=== PATIENT | female | born 1970 | race Caucasian/White ===

== ENCOUNTER → 2016-12-25 | Outpatient (CLI) | payer MEDICARE, MEDICAID ==
[~2016-12-25] MED LIST: /PREG100CA PO; /PREG50CA PO; ALLE180T33 PO; ALLE24TA8 PO; ASPI81TA11 PO; AUGM875T27 PO; DEPA250T2 PO; DEPA500T2 PO; FLEX10TA2 PO; IBUP600T26 PO; LANS30CA PO; LYRI200C PO; MAXA10TA20 PO; MELO7.5T3 PO; METH2.5T PO; NORC1TAB4 PO; NORT25CA2 PO; OMEP20CA3 PO; PAME25CA PO; PANT40TA2 PO; PRED10TA2 PO; PRED20TA PO; VICO5TA PO; VOLT1GEL2 TD; albuterol MDI INH; hydrocodone OR
[2016-12-25 14:19] LABS: MEAN CORPUSCULAR HEMOGLOBIN 29.9 pg (27.0-33.0); MEAN CORPUSCULAR HGB CONC 32.9 g/dl (32.0-36.5); RED CELL DISTRIBUTION WIDTH 13.4 % (11.5-14.5); WHITE BLOOD COUNT 12.6 K/mm3 (4.0-10.0)
[2016-12-25 14:49] LABS: ALBUMIN 3.7 GM/DL (3.2-5.2); ALBUMIN/GLOBULIN RATIO 1.09 (1.00-1.93); ALKALINE PHOSPHATASE 116 U/L (45-117); ALT/SGPT 131 U/L (12-78); ANION GAP 7 MEQ/L (8-16); AST/SGOT 75 U/L (15-37); BILIRUBIN,TOTAL 0.3 MG/DL (0.2-1.0); BLOOD UREA NITROGEN 20 MG/DL (7-18); CALCIUM LEVEL 9.3 MG/DL (8.5-10.1); CARBON DIOXIDE LEVEL 28 MEQ/L (21-32); CHLORIDE LEVEL 106 MEQ/L (98-107); CHOLESTEROL LEVEL 163 MG/DL (<200); CREATININE FOR GFR 0.68 MG/DL (0.55-1.02); GLOMERULAR FILTRATION RATE > 60.0 (>58); GLUCOSE, FASTING 81 MG/DL (70-105); POTASSIUM SERUM 4.5 MEQ/L (3.5-5.1); SODIUM LEVEL 141 MEQ/L (136-145); TOTAL PROTEIN 7.1 GM/DL (6.4-8.2); TRIGLYCERIDES LEVEL 154 MG/DL (<150)
[2016-12-25 14:51] LABS: EOSINOPHILS 1 % (0-5)
== END ==
LOC: M SMT 10:23
PROVIDERS: ATTEND Family Medicine
DX: Z13.220 Encounter for screening for lipoid disorders (principal); F17.210 Nicotine dependence, cigarettes, uncomplicated; M32.9 Systemic lupus erythematosus, unspecified; Z79.899 Other long term (current) drug therapy

== ENCOUNTER → 2016-12-31 | Outpatient (CLI) | payer MEDICARE, MEDICAID ==
[2016-12-31 14:19] LABS: AMYLASE 59 U/L (25-115)
== END ==
LOC: M SMT 10:19
PROVIDERS: ATTEND Family Medicine
DX: R94.5 Abnormal results of liver function studies (principal); R10.13 Epigastric pain

== ENCOUNTER → 2017-01-24 | Outpatient (CLI) | payer MEDICARE, MEDICAID ==
[~2017-01-24] MED LIST changes: +LIDOCAINE 1% MDV 20ML VIAL As Ordered ONE
--- NOTE | 2017-01-24 16:44 | REP ---
DIAGNOSTIC MAMMOGRAM, LEFT BREAST: Patient presented for stereotactic biopsy of clustered microcalcifications in the upper outer quadrant of the left breast. These are quite posterior in location. A account collector medial lateral view is performed. The calcifications could not be seen within the field of view and are too far posterior to visualize in ML projection. Stereotactic images are performed of the calcifications using a cranial to caudal approach. After aligning the needle with the calcifications the compressed breast thickness did not allow enough needle throw to perform the biopsy. The biopsy could not be performed. IMPRESSION: Compressed breast thickness is too thin to allow for adequate throw to perform the stereotactic biopsy of the clustered microcalcifications in the upper outer quadrant of the left breast. Needle localization could be performed for excisional biopsy. Signed by Alexis Smith MD 01/24/2017 07:15 P
== END ==
LOC: M RADPRO 12:17
PROVIDERS: ATTEND Nurse Practitioner Women's Health
DX: R92.1 Mammographic calcification found on diagnostic imaging of breast (principal); F17.210 Nicotine dependence, cigarettes, uncomplicated; Z91.040 Latex allergy status; Z79.82 Long term (current) use of aspirin; Z79.899 Other long term (current) drug therapy

== ENCOUNTER → 2017-03-27 | Outpatient (CLI) | payer MEDICARE, MEDICAID ==
[~2017-03-27] MED LIST changes: +ASPI-101 PO; -ASPI81TA11 PO; +IBUP-1022 PO; -IBUP600T26 PO; -LIDOCAINE 1% MDV 20ML VIAL As Ordered ONE
[2017-03-27 19:19] LABS: BASO % 0.4 % (0.0-1.0); EOS # 0.1 K/mm3 (0.0-0.50); EOS % 0.8 % (0.0-3.0); LARGE UNSTAINED CELL # 0.1 K/mm3 (0.0-0.4); LARGE UNSTAINED CELL % 1.4 % (0.0-4.0); LYMPH # 2.2 K/mm3 (1.5-4.5); LYMPH % 26.6 % (24.0-44.0); MEAN CORPUSCULAR HGB CONC 32.8 g/dl (32.0-36.5); MEAN CORPUSCULAR VOLUME 91.3 fl (80.0-96.0); MONO # 0.5 K/mm3 (0.0-0.8); MONO % 6.9 % (0.0-5.0); NEUTROPHILS # 5.1 K/mm3 (1.8-7.7); NEUTROPHILS % 63.9 % (36.0-66.0); PLATELET COUNT, AUTOMATED 259 k/mm3 (150-450); RED CELL DISTRIBUTION WIDTH 13.4 % (11.5-14.5); WHITE BLOOD COUNT 7.9 K/mm3 (4.0-10.0)
[2017-03-27 19:54] LABS: ALBUMIN 3.6 GM/DL (3.2-5.2); ALKALINE PHOSPHATASE 120 U/L (45-117); ALT/SGPT 36 U/L (12-78); ANION GAP 9 MEQ/L (8-16); AST/SGOT 19 U/L (15-37); BILIRUBIN,TOTAL 0.3 MG/DL (0.2-1.0); BLOOD UREA NITROGEN 13 MG/DL (7-18); CARBON DIOXIDE LEVEL 25 MEQ/L (21-32); CHLORIDE LEVEL 108 MEQ/L (98-107); CHOLESTEROL LEVEL 194 MG/DL (<200); CREATININE FOR GFR 0.53 MG/DL (0.55-1.02); GLOMERULAR FILTRATION RATE > 60.0 (>58); GLUCOSE, FASTING 73 MG/DL (70-105); POTASSIUM SERUM 4.5 MEQ/L (3.5-5.1); SODIUM LEVEL 142 MEQ/L (136-145); TOTAL PROTEIN 6.6 GM/DL (6.4-8.2); TRIGLYCERIDES LEVEL 91 MG/DL (<150)
== END ==
LOC: M SMT 13:35
PROVIDERS: ATTEND Family Medicine
DX: Z13.220 Encounter for screening for lipoid disorders (principal); Z13.0 Encounter for screening for diseases of the blood and blood-forming organs and certain disorders involving the immune mechanism; Z13.29 Encounter for screening for other suspected endocrine disorder; Z79.899 Other long term (current) drug therapy

== ENCOUNTER → 2017-04-16 | Outpatient (REF) | payer MEDICARE, MEDICAID | LOC: M LAB REF 17:17 | PROVIDERS: ATTEND Nurse Practitioner Women's Health | DX: N39.0 Urinary tract infection, site not specified (principal) ==

== ENCOUNTER 2017-04-18 15:44 | Emergency (ER) | payer OTHER, MEDICARE, MEDICAID ==
[~2017-04-18] VITALS: Ht 160 cm; Wt 63.5 kg
[2017-04-18] MEDS ORDERED: NORCO, ANEXSIA 5/325MG TABLET (HYDROcodone/ACETAMINOPHEN) PO ONE (16:15)
[2017-04-18] MEDS ORDERED: CYCLOBENZAPRINE 10 MG TAB PO ONE (17:00)
[2017-04-18 17:02] VITALS: BP 134/83
--- NOTE | 2017-04-18 17:32 | REP ---
CT CERVICAL SPINE WITHOUT CONTRAST: HISTORY: Neck pain. There is no acute fracture or subluxation. Disc bulges with associated osteophyte formation are present at the C5-6 and C6-7 levels. There is minimal narrowing of the spinal canal. Uncinate process hypertrophy is present at the C5-6 and C6-7 levels. This produces minimal to mild narrowing of the neural foramina. The C5-6 and C6-7 intervertebral discs are decreased in height consistent with disc degeneration. A 10 mm hypodensity is present in the right thyroid lobe. This may represent a cyst. IMPRESSION: 1. There is no acute fracture or subluxation. 2. There is cervical spondylosis at the C5-6 and C6-7 levels. 3. 10 mm right thyroid lobe hypodensity. This may represent a cyst. Ultrasound may be helpful for further evaluation. Signed by German Lopez MD 04/19/2017 08:21 A
== END 2017-04-18 17:05 | disposition home or self-care (01) ==
LOC: EDBD 15:44 → M ED 15:44
DX: S16.1XXA Strain of muscle, fascia and tendon at neck level, initial encounter (principal); V43.62XA Car passenger injured in collision with other type car in traffic accident, initial encounter; Y92.410 Unspecified street and highway as the place of occurrence of the external cause; Y93.9 Activity, unspecified; Y99.9 Unspecified external cause status; E04.1 Nontoxic single thyroid nodule; M47.892 Other spondylosis, cervical region; F17.200 Nicotine dependence, unspecified, uncomplicated; Z79.82 Long term (current) use of aspirin; Z79.899 Other long term (current) drug therapy; Z91.040 Latex allergy status

== ENCOUNTER 2017-08-29 21:20 | Inpatient (IN) | payer MEDICARE, MEDICAID, OTHER ==
[2017-08-29] MEDS: NS 1,000 ML IV (23:01)
[2017-08-29 23:04] LABS: BASO # 0.1 10^3/uL (0.0-0.2); BASO % 0.3 % (0.0-1.0); EOS # 0.1 10^3/uL (0.0-0.50); EOS % 0.3 % (0.0-3.0); HEMATOCRIT 44.7 % (36.0-47.0); HEMOGLOBIN 15.1 g/dl (12.0-16.0); IMMATURE GRANULOCYTE # 0.1 10^3/uL (0-0); IMMATURE GRANULOCYTE % 0.5 % (0-0); LYMPH # 2.7 10^3/uL (1.5-4.5); LYMPH % 14.2 % (24.0-44.0); MEAN CORPUSCULAR HEMOGLOBIN 29.4 pg (27.0-33.0); MEAN CORPUSCULAR HGB CONC 33.8 g/dl (32.0-36.5); MONO % 5.5 % (0.0-5.0); NEUTROPHILS % 79.2 % (36.0-66.0); PLATELET COUNT, AUTOMATED 278 10^3/uL (150-450); RED BLOOD COUNT 5.14 10^6/uL (4.00-5.40); RED CELL DISTRIBUTION WIDTH 13.3 % (11.5-14.5); WHITE BLOOD COUNT 18.9 10^3/uL (4.0-10.0)
[2017-08-29 23:18] LABS: CONTROL LINE HCG INT CTR LINE PRESENT; HCG, SERUM QUALITATIVE NEGATIVE (NEGATIVE)
[2017-08-29 23:24] LABS: AMMONIA 13 uMOL/L (<32)
[2017-08-29 23:27] LABS: ALBUMIN 3.9 GM/DL (3.2-5.2); ALBUMIN/GLOBULIN RATIO 1.03 (1.00-1.93); ALKALINE PHOSPHATASE 125 U/L (45-117); ALT/SGPT 34 U/L (12-78); ANION GAP 5 MEQ/L (8-16); AST/SGOT 20 U/L (7-37); BILIRUBIN,DIRECT < 0.1 MG/DL (0.0-0.2); BILIRUBIN,TOTAL 0.2 MG/DL (0.2-1.0); BLOOD UREA NITROGEN 13 MG/DL (7-18); C REACTIVE PROTEIN QUANTITATIV < 0.30 MG/DL (0.00-0.30); CALCIUM LEVEL 9.1 MG/DL (8.5-10.1); CARBON DIOXIDE LEVEL 29 MEQ/L (21-32); CHLORIDE LEVEL 108 MEQ/L (98-107); CPK CREATINE PHOSPHOKINASE 57 U/L (26-192); CREATININE FOR GFR 0.51 MG/DL (0.55-1.02); ETHYL ALCOHOL (ETHANOL) < 0.003 % (0.000-0.010); GLOMERULAR FILTRATION RATE > 60.0 (>58); GLUCOSE, FASTING 84 MG/DL (70-105); POTASSIUM SERUM 3.7 MEQ/L (3.5-5.1); SALICYLATE LEVEL 3.9 MG/DL (5.0-30.0); SODIUM LEVEL 142 MEQ/L (136-145); TOTAL PROTEIN 7.7 GM/DL (6.4-8.2); TROPONIN I < 0.02 NG/ML (< 0.10)
[2017-08-29 23:30] LABS: ERYTHROCYTE SEDIMENTATION RATE 13 mm/hr (0-20)
[2017-08-29 23:33] LABS: MB/CK RELATIVE INDEX 1.75 (< OR =4); THYROID STIMULATING HORMONE 0.726 uIU/ML (0.358-3.740)
[2017-08-29 23:34] LABS: ACETAMINOPHEN LEVEL < 2.0 UG/ML (10.0-30.0)
[2017-08-30 00:09] LABS: INR 0.97
[2017-08-30 01:15] LABS: CHOLESTEROL LEVEL 188 MG/DL (<200)
[2017-08-30] MEDS ORDERED: POLYVINYL ALCOHOL OPHTH SOLN 15 ML(LIQUITEARS) OU (01:15)
[2017-08-30] MEDS ORDERED: BACLOFEN 10 MG TAB PO (01:15)
[2017-08-30 01:27] LABS: ESTIMATED AVERAGE GLUCOSE 88 MG/DL (60-110); HEMOGLOBIN A1c 4.7 %
[2017-08-30 01:30] LABS: TRIGLYCERIDES LEVEL 105 MG/DL (<150)
[2017-08-30 01:56] LABS: CHOLESTEROL RISK RATIO 3.615 (<5); HDL CHOLESTEROL 52 MG/DL (>40); NON-HDL-C 136 MG/DL
[2017-08-30] MEDS: NORTRIPTYLINE 25 MG CAP PO ×2 (02:51→20:00)
[2017-08-30] MEDS: DICYCLOMINE 10 MG CAP PO ×3 (02:51→20:00)
[2017-08-30] MEDS: PREGABALIN 100 MG CAP (LYRICA) PO ×3 (02:51→20:00)
[2017-08-30] MEDS: NS 1,000 ML IV (02:56)
[2017-08-30] MEDS ORDERED: INFLUENZA QUADRIVALENT PF VACCINE 0.5ML SYRINGE (90686) IM ×3 (06:45→09:30)
[2017-08-30] MEDS: FOLIC ACID 1 MG TAB PO (08:47)
[2017-08-30] MEDS: ASPIRIN 81 MG ENTERIC TAB PO (08:47)
[2017-08-30] MEDS: MULTIVITAMINS/MINERALS THERAP 1 TAB PO (08:47)
[2017-08-30] MEDS: ENOXAPARIN 40 MG/0.4 ML SYRINGE (J1650) SC (08:48)
[2017-08-30] MEDS: ANEXSIA, NORCO 7.5MG/325MG TABLET(HYDROCODONE/APAP) PO (19:36)
[2017-08-31 05:34] LABS: HEMATOCRIT 36.8 % (36.0-47.0); MEAN CORPUSCULAR HEMOGLOBIN 29.2 pg (27.0-33.0); MEAN CORPUSCULAR HGB CONC 33.7 g/dl (32.0-36.5); MEAN CORPUSCULAR VOLUME 86.6 fl (80.0-96.0); PLATELET COUNT, AUTOMATED 253 10^3/uL (150-450); RED BLOOD COUNT 4.25 10^6/uL (4.00-5.40); RED CELL DISTRIBUTION WIDTH 13.5 % (11.5-14.5)
[2017-08-31 05:41] LABS: HEMOGLOBIN 12.4 g/dl (12.0-16.0)
[2017-08-31 05:53] LABS: ANION GAP 8 MEQ/L (8-16); BLOOD UREA NITROGEN 15 MG/DL (7-18); CALCIUM LEVEL 8.3 MG/DL (8.5-10.1); CARBON DIOXIDE LEVEL 24 MEQ/L (21-32); CHLORIDE LEVEL 110 MEQ/L (98-107); CREATININE FOR GFR 0.53 MG/DL (0.55-1.02); GLOMERULAR FILTRATION RATE > 60.0 (>58); GLUCOSE, FASTING 105 MG/DL (70-105); POTASSIUM SERUM 3.4 MEQ/L (3.5-5.1); SODIUM LEVEL 142 MEQ/L (136-145)
[2017-08-31] MEDS: ANEXSIA, NORCO 7.5MG/325MG TABLET(HYDROCODONE/APAP) PO (05:56)
[2017-08-31 07:31] LABS: MAGNESIUM LEVEL 1.8 MG/DL (1.8-2.4)
[2017-08-31] MEDS: DICYCLOMINE 10 MG CAP PO ×2 (08:09→20:00)
[2017-08-31] MEDS: ENOXAPARIN 40 MG/0.4 ML SYRINGE (J1650) SC (08:09)
[2017-08-31] MEDS: MULTIVITAMINS/MINERALS THERAP 1 TAB PO (08:10)
[2017-08-31] MEDS: FOLIC ACID 1 MG TAB PO (08:10)
[2017-08-31] MEDS: PREGABALIN 100 MG CAP (LYRICA) PO ×2 (08:10→20:00)
[2017-08-31] MEDS: ASPIRIN 81 MG ENTERIC TAB PO (08:11)
[2017-08-31] MEDS: POTASSIUM CHLORIDE 10 MEQ SR TABLET PO (08:52)
[2017-08-31] MEDS: ACETAMINOPHEN TAB 650MG DOSE (2X325MG) PO ×2 (12:38→23:21)
[2017-08-31] MEDS: NICOTINE 14 MG/24 HR TRANSDERMAL TD (14:07)
[2017-08-31] MEDS: NORTRIPTYLINE 25 MG CAP PO (20:00)
[2017-08-31] MEDS: IBUPROFEN 400 MG TAB PO (20:01)
[2017-09-01 05:49] LABS: HEMATOCRIT 37.6 % (36.0-47.0); HEMOGLOBIN 12.6 g/dl (12.0-16.0); MEAN CORPUSCULAR HEMOGLOBIN 29.1 pg (27.0-33.0); MEAN CORPUSCULAR HGB CONC 33.5 g/dl (32.0-36.5); MEAN CORPUSCULAR VOLUME 86.8 fl (80.0-96.0); PLATELET COUNT, AUTOMATED 254 10^3/uL (150-450); RED BLOOD COUNT 4.33 10^6/uL (4.00-5.40); RED CELL DISTRIBUTION WIDTH 13.3 % (11.5-14.5); WHITE BLOOD COUNT 7.3 10^3/uL (4.0-10.0)
[2017-09-01 06:04] LABS: ANION GAP 8 MEQ/L (8-16); BLOOD UREA NITROGEN 11 MG/DL (7-18); CARBON DIOXIDE LEVEL 22 MEQ/L (21-32); CHLORIDE LEVEL 112 MEQ/L (98-107); CREATININE FOR GFR 0.49 MG/DL (0.55-1.02); GLOMERULAR FILTRATION RATE > 60.0 (>58); GLUCOSE, FASTING 89 MG/DL (70-105); POTASSIUM SERUM 4.1 MEQ/L (3.5-5.1); SODIUM LEVEL 142 MEQ/L (136-145)
[2017-09-01] MEDS: ASPIRIN 81 MG ENTERIC TAB PO (09:11)
[2017-09-01] MEDS: PREGABALIN 100 MG CAP (LYRICA) PO (09:11)
[2017-09-01] MEDS: FOLIC ACID 1 MG TAB PO (09:11)
[2017-09-01] MEDS: MULTIVITAMINS/MINERALS THERAP 1 TAB PO (09:12)
[2017-09-01] MEDS: DICYCLOMINE 10 MG CAP PO (09:12)
[2017-09-01] MEDS: NICOTINE 14 MG/24 HR TRANSDERMAL TD (09:13)
[2017-09-01] MEDS: ENOXAPARIN 40 MG/0.4 ML SYRINGE (J1650) SC (09:13)
[2017-09-03 09:32] LABS: DRVV SCREEN 45.9 SEC
[2017-09-03 09:36] LABS: PTT LUPUS TYPE ANTICOAG SCREEN 1.1 (0-1.2)
[2017-09-03 14:12] LABS: ANCA-ATYPICAL <1:20 titer (Neg:<1:20); ANTI DOUBLE STRAND-DNA AB <1 IU/mL (0-9); ANTI THROMBIN 3 ANTIGEN IMMUNO 79 % (72-124); ANTI THROMBIN 3 FUNCT ACTIVITY 90 % (75-135); ANTINUCLEAR ANTIBODIES DIRECT Positive (Negative); CARDIOLIPIN IGA ANTIBODY <9 APL U/mL (0-11); CARDIOLIPIN IGG ANTIBODY <9 GPL U/mL (0-14); CARDIOLIPIN IGM ANTIBODY 10 MPL U/mL (0-12); CYTOPLASMIC NEUTROP AB ANCA-C <1:20 titer (Neg:<1:20); HOMOCYST(E)INE SERUM 6.2 umol/L (0.0-15.0); PERINUCLEAR AB ANCA-P <1:20 titer (Neg:<1:20); PROTEIN C ANTIGEN 87 % (60-150); PROTEIN S ANTIGEN FREE 57 % (57-157); PROTEIN S ANTIGEN TOTAL 77 % (60-150); RNP ANTIBODIES <0.2 AI (0.0-0.9); SJOGREN'S ANTI SS-B <0.2 AI (0.0-0.9); SMITH ANTIBODIES <0.2 AI (0.0-0.9)
== END 2017-09-01 15:54 | disposition home or self-care (01) | DRG 69 ==
LOC: M ED INP 21:21 → M PCU 08-30 18:37 → M ED 21:20
DX: G45.9 Transient cerebral ischemic attack, unspecified (principal); R26.9 Unspecified abnormalities of gait and mobility; M35.00 Sjogren syndrome, unspecified; I73.00 Raynaud's syndrome without gangrene; F17.200 Nicotine dependence, unspecified, uncomplicated; Z79.899 Other long term (current) drug therapy; Z91.040 Latex allergy status; Z79.82 Long term (current) use of aspirin; M19.90 Unspecified osteoarthritis, unspecified site; M79.7 Fibromyalgia; G43.909 Migraine, unspecified, not intractable, without status migrainosus; I44.0 Atrioventricular block, first degree

== ENCOUNTER → 2017-09-06 | Outpatient (CLI) | payer OTHER, MEDICAID, MEDICARE | LOC: M PAIN 14:00 | DX: G89.29 Other chronic pain (principal); M47.812 Spondylosis without myelopathy or radiculopathy, cervical region; M50.121 Cervical disc disorder at C4-C5 level with radiculopathy; M79.1 Myalgia; M32.9 Systemic lupus erythematosus, unspecified; G47.30 Sleep apnea, unspecified; M19.90 Unspecified osteoarthritis, unspecified site; F17.210 Nicotine dependence, cigarettes, uncomplicated; Z88.5 Allergy status to narcotic agent; Z88.8 Allergy status to other drugs, medicaments and biological substances; Z91.040 Latex allergy status; Z79.891 Long term (current) use of opiate analgesic; Z79.82 Long term (current) use of aspirin; Z79.899 Other long term (current) drug therapy | CPT/HCPCS: G0463 ==

== ENCOUNTER → 2017-09-09 | Outpatient (CLI) | payer OTHER, MEDICAID, MEDICARE ==
[~2017-09-09] MED LIST changes: -/PREG100CA PO; -/PREG50CA PO; -ALLE180T33 PO; -ALLE24TA8 PO; -ASPI-101 PO; -AUGM875T27 PO; +BUPIVACAINE HCL 0.25% 10 ML VIAL As Ordered; +BUPIVACAINE HCL 0.25% 30 ML VIAL As Ordered; -DEPA250T2 PO; -DEPA500T2 PO; -FLEX10TA2 PO; -IBUP-1022 PO; -LANS30CA PO; -LYRI200C PO; -MAXA10TA20 PO; -MELO7.5T3 PO; -METH2.5T PO; -NORC1TAB4 PO; -NORT25CA2 PO; -OMEP20CA3 PO; -PAME25CA PO; -PANT40TA2 PO; -PRED10TA2 PO; -PRED20TA PO; +TRIAMCINOLONE ACETONIDE SUSP 40 MG/ML VIAL (J3301) As Ordered; -VICO5TA PO; -VOLT1GEL2 TD; -albuterol MDI INH; +diazePAM 5 MG TAB As Ordered; -hydrocodone OR
== END ==
LOC: M PAIN 10:15
DX: G89.29 Other chronic pain (principal); M54.2 Cervicalgia; M79.1 Myalgia; M32.9 Systemic lupus erythematosus, unspecified; I73.00 Raynaud's syndrome without gangrene; G47.00 Insomnia, unspecified; M19.90 Unspecified osteoarthritis, unspecified site; K86.1 Other chronic pancreatitis; Z88.5 Allergy status to narcotic agent; Z88.8 Allergy status to other drugs, medicaments and biological substances; Z91.040 Latex allergy status; Z79.891 Long term (current) use of opiate analgesic; Z79.82 Long term (current) use of aspirin; Z79.899 Other long term (current) drug therapy
CPT/HCPCS: J3301

== ENCOUNTER → 2017-10-08 | Outpatient (CLI) | payer MEDICARE, MEDICAID | LOC: M RAD 12:59 | DX: E04.1 Nontoxic single thyroid nodule (principal) | CPT/HCPCS: 78012 ==

== ENCOUNTER → 2017-10-15 | Outpatient (CLI) | payer OTHER, MEDICAID, MEDICARE | LOC: M PAIN 13:00 | DX: M79.1 Myalgia (principal); M54.2 Cervicalgia; F17.210 Nicotine dependence, cigarettes, uncomplicated; Z79.82 Long term (current) use of aspirin; Z79.891 Long term (current) use of opiate analgesic; Z79.899 Other long term (current) drug therapy; Z88.8 Allergy status to other drugs, medicaments and biological substances; Z91.040 Latex allergy status | CPT/HCPCS: G0463 ==

== ENCOUNTER → 2017-11-13 | Outpatient (CLI) | payer OTHER, MEDICAID, MEDICARE ==
[~2017-11-13] MED LIST changes: -diazePAM 5 MG TAB As Ordered
== END ==
LOC: M PAIN 14:15
DX: G89.29 Other chronic pain (principal); M79.1 Myalgia; F17.210 Nicotine dependence, cigarettes, uncomplicated; Z79.82 Long term (current) use of aspirin; Z79.891 Long term (current) use of opiate analgesic; Z79.899 Other long term (current) drug therapy; Z88.8 Allergy status to other drugs, medicaments and biological substances
CPT/HCPCS: J3301

== ENCOUNTER → 2017-12-18 | Outpatient (CLI) | payer OTHER, MEDICAID, MEDICARE ==
[~2017-12-18] MED LIST changes: -BUPIVACAINE HCL 0.25% 10 ML VIAL As Ordered; -BUPIVACAINE HCL 0.25% 30 ML VIAL As Ordered; +ISOVUE-M 300 61% 15ML VIAL (Q9967) As Ordered; +LIDOCAINE 1% SDV INJ 30 ML VIAL As Ordered; -TRIAMCINOLONE ACETONIDE SUSP 40 MG/ML VIAL (J3301) As Ordered; +methylPREDNISolone SUSP 40 MG/ML (DEPO-medrol) VIAL (J1030) As Ordered
== END ==
LOC: M PAIN 11:15
DX: G89.29 Other chronic pain (principal); M50.13 Cervical disc disorder with radiculopathy, cervicothoracic region; K86.1 Other chronic pancreatitis; M32.9 Systemic lupus erythematosus, unspecified; M79.7 Fibromyalgia; I73.00 Raynaud's syndrome without gangrene; M35.00 Sjogren syndrome, unspecified; Z79.891 Long term (current) use of opiate analgesic; M19.90 Unspecified osteoarthritis, unspecified site; F17.210 Nicotine dependence, cigarettes, uncomplicated; G47.00 Insomnia, unspecified; Z79.82 Long term (current) use of aspirin; Z79.899 Other long term (current) drug therapy; Z88.5 Allergy status to narcotic agent; Z88.8 Allergy status to other drugs, medicaments and biological substances; Z91.040 Latex allergy status
CPT/HCPCS: J1030

== ENCOUNTER → 2018-01-10 | Outpatient (CLI) | payer OTHER, MEDICAID, MEDICARE | LOC: M PAIN 14:15 | DX: M54.12 Radiculopathy, cervical region (principal); M79.1 Myalgia; M50.20 Other cervical disc displacement, unspecified cervical region; M32.9 Systemic lupus erythematosus, unspecified; I73.00 Raynaud's syndrome without gangrene; G47.00 Insomnia, unspecified; M19.90 Unspecified osteoarthritis, unspecified site; F17.210 Nicotine dependence, cigarettes, uncomplicated; K86.1 Other chronic pancreatitis; Z79.82 Long term (current) use of aspirin; Z79.899 Other long term (current) drug therapy; Z88.5 Allergy status to narcotic agent; Z88.8 Allergy status to other drugs, medicaments and biological substances; Z91.040 Latex allergy status | CPT/HCPCS: G0463 ==

== ENCOUNTER → 2018-03-12 | Outpatient (CLI) | payer MEDICARE, MEDICAID ==
[2018-03-12 13:03] LABS: BASO % 0.2 % (0.0-1.0); EOS # 0.1 10^3/uL (0.0-0.50); EOS % 0.7 % (0.0-3.0); HEMATOCRIT 42.2 % (36.0-47.0); HEMOGLOBIN 14.1 g/dl (12.0-15.5); IMMATURE GRANULOCYTE % 0.4 % (0-3.0); LYMPH # 2.6 10^3/uL (1.5-4.5); MEAN CORPUSCULAR HEMOGLOBIN 29.3 pg (27.0-33.0); MEAN CORPUSCULAR HGB CONC 33.4 g/dl (32.0-36.5); MEAN CORPUSCULAR VOLUME 87.6 fl (80.0-96.0); MONO # 0.9 10^3/uL (0.0-0.8); MONO % 6.8 % (0.0-5.0); NEUTROPHILS # 8.9 10^3/uL (1.8-7.7); NEUTROPHILS % 70.9 % (36.0-66.0); PLATELET COUNT, AUTOMATED 303 10^3/uL (150-450); RED BLOOD COUNT 4.82 10^6/uL (4.00-5.40); RED CELL DISTRIBUTION WIDTH 14.1 % (11.5-14.5); WHITE BLOOD COUNT 12.6 10^3/uL (4.0-10.0)
[2018-03-12 13:42] LABS: ERYTHROCYTE SEDIMENTATION RATE 24 mm/hr (0-20)
[2018-03-12 13:45] LABS: ALBUMIN 3.6 GM/DL (3.2-5.2); ALBUMIN/GLOBULIN RATIO 1.06 (1.00-1.93); ALKALINE PHOSPHATASE 131 U/L (45-117); ALT/SGPT 35 U/L (12-78); ANION GAP 6 MEQ/L (8-16); AST/SGOT 17 U/L (7-37); BILIRUBIN,TOTAL 0.3 MG/DL (0.2-1.0); BLOOD UREA NITROGEN 15 MG/DL (7-18); C REACTIVE PROTEIN QUANTITATIV < 0.30 MG/DL (0.00-0.30); CALCIUM LEVEL 8.6 MG/DL (8.5-10.1); CARBON DIOXIDE LEVEL 26 MEQ/L (21-32); CHLORIDE LEVEL 111 MEQ/L (98-107); CREATININE FOR GFR 0.55 MG/DL (0.55-1.30); FREE T4 1.12 NG/DL (0.76-1.46); GLOMERULAR FILTRATION RATE > 60.0 (>58); GLUCOSE, FASTING 82 MG/DL (70-100); MAGNESIUM LEVEL 2.1 MG/DL (1.8-2.4); POTASSIUM SERUM 3.9 MEQ/L (3.5-5.1); SODIUM LEVEL 143 MEQ/L (136-145); THYROID STIMULATING HORMONE 0.622 uIU/ML (0.358-3.740)
[2018-03-14 00:37] LABS: Lyme Disease IgG/IgM Antibodie <0.91 ISR (0.00-0.90); Lyme Disease IgM Ab Quantitati <0.80 index (0.00-0.79)
== END ==
LOC: M SMT 11:56
DX: R60.0 Localized edema (principal); R23.3 Spontaneous ecchymoses
CPT/HCPCS: 83735

== ENCOUNTER 2018-03-27 18:04 | Emergency (ER) | payer MEDICARE, MEDICAID ==
[2018-03-27] MEDS: NS 1,000 ML IV (18:32)
[2018-03-27] MEDS: MORPHINE 4 MG/ML 1ML VIAL/SYRINGE (J2270) IV (18:32)
[2018-03-27] MEDS: ONDANSETRON 4MG/2ML VIAL (J2405) IV (18:33)
[2018-03-27 19:01] LABS: BASO % 0.3 % (0.0-1.0); EOS # 0.2 10^3/uL (0.0-0.50); EOS % 1.7 % (0.0-3.0); HEMATOCRIT 43.5 % (36.0-47.0); HEMOGLOBIN 14.8 g/dl (12.0-15.5); IMMATURE GRANULOCYTE % 0.3 % (0-3.0); LYMPH # 3.6 10^3/uL (1.5-4.5); LYMPH % 30.8 % (24.0-44.0); MEAN CORPUSCULAR HEMOGLOBIN 29.2 pg (27.0-33.0); MONO # 0.7 10^3/uL (0.0-0.8); MONO % 6.1 % (0.0-5.0); NEUTROPHILS # 7.1 10^3/uL (1.8-7.7); NEUTROPHILS % 60.8 % (36.0-66.0); PLATELET COUNT, AUTOMATED 288 10^3/uL (150-450); RED BLOOD COUNT 5.06 10^6/uL (4.00-5.40); RED CELL DISTRIBUTION WIDTH 14.4 % (11.5-14.5); WHITE BLOOD COUNT 11.8 10^3/uL (4.0-10.0)
[2018-03-27] MEDS: HYDROMORPHONE HCL 0.5 MG/ 0.5 ML SYRINGE (J1170 PER 1) IV (19:04)
[2018-03-27 19:13] LABS: LACTIC ACID SEPSIS PROTOCOL 0.9 MMOL/L (0.4-2.0)
[2018-03-27 19:18] LABS: ALBUMIN 3.8 GM/DL (3.2-5.2); ALKALINE PHOSPHATASE 147 U/L (45-117); ALT/SGPT 41 U/L (12-78); AMYLASE 53 U/L (25-115); ANION GAP 9 MEQ/L (8-16); AST/SGOT 48 U/L (7-37); BILIRUBIN,DIRECT < 0.1 MG/DL (0.0-0.2); BILIRUBIN,TOTAL 0.3 MG/DL (0.2-1.0); BLOOD UREA NITROGEN 11 MG/DL (7-18); CALCIUM LEVEL 9.1 MG/DL (8.5-10.1); CARBON DIOXIDE LEVEL 26 MEQ/L (21-32); CHLORIDE LEVEL 110 MEQ/L (98-107); CREATININE FOR GFR 0.67 MG/DL (0.55-1.30); GLOMERULAR FILTRATION RATE > 60.0 (>58); GLUCOSE, FASTING 93 MG/DL (70-100); LIPASE 242 U/L (73-393); POTASSIUM SERUM 4.6 MEQ/L (3.5-5.1); SODIUM LEVEL 145 MEQ/L (136-145); TOTAL PROTEIN 7.6 GM/DL (6.4-8.2)
[2018-03-27 19:26] LABS: KETONE, URINE AUTO RFX NEGATIVE (NEGATIVE); LEUKOCYTE ESTERASE UR AUTO RFX NEGATIVE (NEGATIVE); MUCUS, URINE RFX SMALL (NEGATIVE); NITRITE, URINE AUTO RFX NEGATIVE (NEGATIVE); RBC, URINE AUTO RFX TNTC /HPF (0-3); SPECIFIC GRAVITY UR AUTO RFX 1.009 (1.002-1.035); SQUAM EPITHELIAL CELL UR AURFX 0 /HPF (0-6); WBC, URINE AUTO RFX 4 /HPF (0-3)
[2018-03-27] MEDS ORDERED: ISOVUE-370 76% 100ML VIAL (Q9967) As Ordered (19:35)
== END 2018-03-27 21:28 | disposition home or self-care (01) ==
LOC: M ED 18:04
DX: N39.0 Urinary tract infection, site not specified (principal); N20.1 Calculus of ureter; K52.9 Noninfective gastroenteritis and colitis, unspecified; R05 Cough; Z86.73 Personal history of transient ischemic attack (TIA), and cerebral infarction without residual deficits; G43.909 Migraine, unspecified, not intractable, without status migrainosus; G62.9 Polyneuropathy, unspecified; K21.9 Gastro-esophageal reflux disease without esophagitis; M79.7 Fibromyalgia; M35.00 Sjogren syndrome, unspecified; Z72.0 Tobacco use; Z79.82 Long term (current) use of aspirin; Z79.899 Other long term (current) drug therapy; Z91.040 Latex allergy status
CPT/HCPCS: J2270

== ENCOUNTER → 2018-03-27 | Outpatient (CLI) | payer MEDICARE, MEDICAID ==
[2018-03-27 17:54] LABS: BASO % 0.4 % (0.0-1.0); EOS # 0.1 10^3/uL (0.0-0.50); EOS % 1.4 % (0.0-3.0); HEMOGLOBIN 13.9 g/dl (12.0-15.5); IMMATURE GRANULOCYTE % 0.4 % (0-3.0); LYMPH # 3.1 10^3/uL (1.5-4.5); LYMPH % 31.7 % (24.0-44.0); MEAN CORPUSCULAR HEMOGLOBIN 28.9 pg (27.0-33.0); MEAN CORPUSCULAR HGB CONC 32.3 g/dl (32.0-36.5); MEAN CORPUSCULAR VOLUME 89.4 fl (80.0-96.0); MONO # 0.6 10^3/uL (0.0-0.8); MONO % 6.5 % (0.0-5.0); NEUTROPHILS # 5.8 10^3/uL (1.8-7.7); NEUTROPHILS % 59.6 % (36.0-66.0); PLATELET COUNT, AUTOMATED 276 10^3/uL (150-450); RED BLOOD COUNT 4.81 10^6/uL (4.00-5.40); RED CELL DISTRIBUTION WIDTH 14.4 % (11.5-14.5); WHITE BLOOD COUNT 9.8 10^3/uL (4.0-10.0)
[2018-03-27 19:01] LABS: C REACTIVE PROTEIN QUANTITATIV < 0.30 MG/DL (0.00-0.30)
[2018-03-27 19:46] LABS: ERYTHROCYTE SEDIMENTATION RATE 18 mm/hr (0-20)
== END ==
LOC: M SMT 13:26
DX: R05 Cough (principal)

== ENCOUNTER 2018-03-31 14:27 | Inpatient (IN) | payer MEDICARE, MEDICAID ==
[2018-03-31] MEDS: NS 1,000 ML IV ×2 (15:29→23:40)
[2018-03-31] MEDS ORDERED: GASTROGRAFIN SOLUTION 30ML (Q9963) As Ordered ×2 (15:30→16:08)
[2018-03-31 15:34] LABS: BASO % 0.2 % (0.0-1.0); EOS # 0.1 10^3/uL (0.0-0.50); EOS % 0.7 % (0.0-3.0); HEMATOCRIT 39.3 % (36.0-47.0); HEMOGLOBIN 13.1 g/dl (12.0-15.5); IMMATURE GRANULOCYTE % 0.4 % (0-3.0); LYMPH # 1.7 10^3/uL (1.5-4.5); LYMPH % 13.2 % (24.0-44.0); MEAN CORPUSCULAR HGB CONC 33.3 g/dl (32.0-36.5); MEAN CORPUSCULAR VOLUME 86.9 fl (80.0-96.0); MONO # 1.1 10^3/uL (0.0-0.8); MONO % 8.1 % (0.0-5.0); NEUTROPHILS % 77.4 % (36.0-66.0); PLATELET COUNT, AUTOMATED 249 10^3/uL (150-450); RED BLOOD COUNT 4.52 10^6/uL (4.00-5.40); RED CELL DISTRIBUTION WIDTH 14.5 % (11.5-14.5); WHITE BLOOD COUNT 12.9 10^3/uL (4.0-10.0)
[2018-03-31] MEDS: MORPHINE 4 MG/ML 1ML VIAL/SYRINGE (J2270) IV (15:37)
[2018-03-31 15:43] LABS: ALBUMIN 3.4 GM/DL (3.2-5.2); ALBUMIN/GLOBULIN RATIO 1.06 (1.00-1.93); ALKALINE PHOSPHATASE 123 U/L (45-117); ALT/SGPT 40 U/L (12-78); AMYLASE 53 U/L (25-115); ANION GAP 6 MEQ/L (8-16); AST/SGOT 28 U/L (7-37); BILIRUBIN,TOTAL 0.3 MG/DL (0.2-1.0); BLOOD UREA NITROGEN 15 MG/DL (7-18); C REACTIVE PROTEIN QUANTITATIV 0.59 MG/DL (0.00-0.30); CALCIUM LEVEL 8.9 MG/DL (8.5-10.1); CARBON DIOXIDE LEVEL 26 MEQ/L (21-32); CHLORIDE LEVEL 111 MEQ/L (98-107); CREATININE FOR GFR 0.75 MG/DL (0.55-1.30); GLOMERULAR FILTRATION RATE > 60.0 (>58); GLUCOSE, FASTING 87 MG/DL (70-100); LIPASE 240 U/L (73-393); POTASSIUM SERUM 3.9 MEQ/L (3.5-5.1); SODIUM LEVEL 143 MEQ/L (136-145); TOTAL PROTEIN 6.6 GM/DL (6.4-8.2)
[2018-03-31 15:43] LABS: LACTIC ACID SEPSIS PROTOCOL 0.7 MMOL/L (0.4-2.0)
[2018-03-31] MEDS: METOCLOPRAMIDE INJ 10MG/2ML VIAL (J2765) IV ×2 (16:15→23:00)
[2018-03-31] MEDS: TRIMETHOBENZAMIDE HCL INJ 200 MG/2 ML VIAL (J3250) IM (17:30)
[2018-03-31] MEDS ORDERED: ISOVUE-370 76% 100ML VIAL (Q9967) As Ordered (17:33)
[2018-03-31] MEDS ORDERED: PROMETHAZINE INJ 25 MG/ML VIAL (J2550) IV (18:45)
[2018-03-31 18:46] LABS: APPEARANCE, URINE HAZY (CLEAR); BACTERIA, URINE AUTO 2+ (NEGATIVE); BILIRUBIN, URINE AUTO NEGATIVE (NEGATIVE); BLOOD, URINE BLOOD 1+ (NEGATIVE); CALCIUM OXALATE CRYSTALS SMALL; COLOR, URINE YELLOW (YELLOW); GLUCOSE, URINE (UA) AUTO NEGATIVE (NEGATIVE); KETONE, URINE AUTO NEGATIVE (NEGATIVE); LEUKOCYTE ESTERASE, URINE AUTO 1+ (NEGATIVE); MUCUS, URINE SMALL (NEGATIVE); NITRITE, URINE AUTO NEGATIVE (NEGATIVE); PROTEIN, URINE AUTO NEGATIVE (NEGATIVE); RBC, URINE AUTO 6 /HPF (0-3); SPECIFIC GRAVITY URINE AUTO 1.047 (1.002-1.035); SQUAMOUS EPITHELIAL CELL UR AU 20 /HPF (0-6); UROBILINOGEN, URINE AUTO 0.2 mg/dL (0.0-2.0); WBC, URINE AUTO 12 /HPF (0-3)
[2018-03-31] MEDS: PROMETHAZINE INJ 25 MG/ML VIAL (J2550) IM (19:00)
[2018-03-31] MEDS: KETOROLAC 30 MG/ML VIAL (J1885) IV (20:15)
[2018-03-31] MEDS: ONDANSETRON 4 MG ORAL DISINTEGRATING TAB (Q0162 PER 1MG) PO (21:29)
[2018-04-01] MEDS ORDERED: ACETAMINOPHEN TAB 650MG DOSE (2X325MG) PO
[2018-04-01] MEDS ORDERED: MORPHINE 4 MG/ML 1ML VIAL/SYRINGE (J2270) IV
[2018-04-01] MEDS ORDERED: ONDANSETRON 4MG/2ML VIAL (J2405) IV
[2018-04-01] MEDS ORDERED: PATADAY 0.2% OU (00:15)
[2018-04-01] MEDS ORDERED: HYDROcodone/APAP LIQUID 7.5-325MG 15ML UDC (LORTAB ELIXIR) PO (00:15)
[2018-04-01] MEDS ORDERED: POLYVINYL ALCOHOL OPHTH SOLN 15 ML(LIQUITEARS) OU (00:15)
[2018-04-01] MEDS ORDERED: OPTH OU (00:15)
[2018-04-01] MEDS: NS 1,000 ML IV (02:00)
[2018-04-01] MEDS: NORTRIPTYLINE 25 MG CAP PO ×2 (04:47→21:31)
[2018-04-01] MEDS: PREGABALIN 100 MG CAP (LYRICA) PO ×3 (04:47→21:31)
[2018-04-01] MEDS: HEPARIN SOD (PORCINE) 5000 UNITS/ML VIAL SC ×3 (06:48→21:31)
[2018-04-01 06:52] LABS: HEMATOCRIT 33.7 % (36.0-47.0); HEMOGLOBIN 11.4 g/dl (12.0-15.5); MEAN CORPUSCULAR HEMOGLOBIN 29.5 pg (27.0-33.0); MEAN CORPUSCULAR HGB CONC 33.8 g/dl (32.0-36.5); MEAN CORPUSCULAR VOLUME 87.1 fl (80.0-96.0); PLATELET COUNT, AUTOMATED 230 10^3/uL (150-450); RED BLOOD COUNT 3.87 10^6/uL (4.00-5.40); RED CELL DISTRIBUTION WIDTH 14.3 % (11.5-14.5); WHITE BLOOD COUNT 9.5 10^3/uL (4.0-10.0)
[2018-04-01 07:11] LABS: ANION GAP 9 MEQ/L (8-16); BLOOD UREA NITROGEN 11 MG/DL (7-18); CARBON DIOXIDE LEVEL 23 MEQ/L (21-32); CHLORIDE LEVEL 115 MEQ/L (98-107); CREATININE FOR GFR 0.43 MG/DL (0.55-1.30); GLOMERULAR FILTRATION RATE > 60.0 (>58); GLUCOSE, FASTING 83 MG/DL (70-100); POTASSIUM SERUM 3.6 MEQ/L (3.5-5.1); SODIUM LEVEL 147 MEQ/L (136-145)
[2018-04-01] MEDS: ASPIRIN 81 MG ENTERIC TAB PO (08:41)
[2018-04-01] MEDS: NS 0.45% 1,000 ML IV ×2 (08:41→19:20)
[2018-04-01] MEDS: DICYCLOMINE 10 MG CAP PO ×4 (08:41→21:31)
[2018-04-01] MEDS: LevoFLOXacin IV 500 MG in APPROPRIATE DILUENT 1 EA IV (08:41)
[2018-04-01] MEDS: TAMSULOSIN 0.4 MG CAP PO (18:09)
[2018-04-01] MEDS: MULTIVITAMINS/MINERALS THERAP 1 TAB PO (21:31)
[2018-04-02] MEDS: NS 0.45% 1,000 ML IV ×2 (05:48→16:40)
[2018-04-02] MEDS: HEPARIN SOD (PORCINE) 5000 UNITS/ML VIAL SC ×3 (06:07→21:50)
[2018-04-02] MEDS: LevoFLOXacin IV 500 MG in APPROPRIATE DILUENT 1 EA IV (08:10)
[2018-04-02] MEDS: PREGABALIN 100 MG CAP (LYRICA) PO ×2 (08:11→21:51)
[2018-04-02] MEDS: ASPIRIN 81 MG ENTERIC TAB PO (08:11)
[2018-04-02] MEDS: DICYCLOMINE 10 MG CAP PO ×4 (08:11→21:51)
[2018-04-02] MEDS: TAMSULOSIN 0.4 MG CAP PO (17:27)
[2018-04-02] MEDS: NORTRIPTYLINE 25 MG CAP PO (21:50)
[2018-04-02] MEDS: MULTIVITAMINS/MINERALS THERAP 1 TAB PO (21:51)
[2018-04-03] MEDS: HEPARIN SOD (PORCINE) 5000 UNITS/ML VIAL SC (06:24)
[2018-04-03 07:39] LABS: HEMATOCRIT 33.6 % (36.0-47.0); HEMOGLOBIN 11.6 g/dl (12.0-15.5); MEAN CORPUSCULAR HEMOGLOBIN 29.4 pg (27.0-33.0); MEAN CORPUSCULAR HGB CONC 34.5 g/dl (32.0-36.5); MEAN CORPUSCULAR VOLUME 85.1 fl (80.0-96.0); PLATELET COUNT, AUTOMATED 257 10^3/uL (150-450); RED BLOOD COUNT 3.95 10^6/uL (4.00-5.40); RED CELL DISTRIBUTION WIDTH 14.4 % (11.5-14.5); WHITE BLOOD COUNT 9.5 10^3/uL (4.0-10.0)
[2018-04-03 07:57] LABS: ALBUMIN 2.8 GM/DL (3.2-5.2); ALKALINE PHOSPHATASE 96 U/L (45-117); ALT/SGPT 36 U/L (12-78); AMYLASE 34 U/L (25-115); ANION GAP 10 MEQ/L (8-16); AST/SGOT 17 U/L (7-37); BILIRUBIN,TOTAL 0.1 MG/DL (0.2-1.0); BLOOD UREA NITROGEN 6 MG/DL (7-18); C REACTIVE PROTEIN QUANTITATIV 0.36 MG/DL (0.00-0.30); CALCIUM LEVEL 8.5 MG/DL (8.5-10.1); CARBON DIOXIDE LEVEL 25 MEQ/L (21-32); CHLORIDE LEVEL 111 MEQ/L (98-107); GLOMERULAR FILTRATION RATE > 60.0 (>58); GLUCOSE, FASTING 84 MG/DL (70-100); LIPASE 138 U/L (73-393); POTASSIUM SERUM 3.1 MEQ/L (3.5-5.1); SODIUM LEVEL 146 MEQ/L (136-145); TOTAL PROTEIN 5.9 GM/DL (6.4-8.2)
[2018-04-03] MEDS: ASPIRIN 81 MG ENTERIC TAB PO (08:12)
[2018-04-03] MEDS: DICYCLOMINE 10 MG CAP PO (08:12)
[2018-04-03] MEDS: PREGABALIN 100 MG CAP (LYRICA) PO (08:12)
[2018-04-03 08:13] LABS: ERYTHROCYTE SEDIMENTATION RATE 30 mm/hr (0-20)
[2018-04-06] MEDS ORDERED: METHOTREXATE 2.5 MG TAB (J8610 PER 2.5MG) PO (09:00)
== END 2018-04-03 10:58 | disposition home or self-care (01) | DRG 694 ==
LOC: M ED INP 04-01 00:25 → M PED 04-01 02:53 → M ED 14:27
DX: N13.2 Hydronephrosis with renal and ureteral calculous obstruction (principal); M79.7 Fibromyalgia; Z79.899 Other long term (current) drug therapy; M35.00 Sjogren syndrome, unspecified; M32.10 Systemic lupus erythematosus, organ or system involvement unspecified; Z91.040 Latex allergy status; Z79.82 Long term (current) use of aspirin; E86.0 Dehydration

== ENCOUNTER → 2018-04-16 | Outpatient (REF) | payer MEDICARE, MEDICAID ==
[2018-04-16 14:26] LABS: APPEARANCE, URINE CLOUDY (CLEAR); BACTERIA, URINE AUTO NEGATIVE (NEGATIVE); BILIRUBIN, URINE AUTO NEGATIVE (NEGATIVE); BLOOD, URINE BLOOD 3+ (NEGATIVE); COLOR, URINE YELLOW (YELLOW); GLUCOSE, URINE (UA) AUTO NEGATIVE (NEGATIVE); KETONE, URINE AUTO NEGATIVE (NEGATIVE); LEUKOCYTE ESTERASE, URINE AUTO NEGATIVE (NEGATIVE); MUCUS, URINE SMALL (NEGATIVE); NITRITE, URINE AUTO NEGATIVE (NEGATIVE); PROTEIN, URINE AUTO NEGATIVE (NEGATIVE); RBC, URINE AUTO TNTC /HPF (0-3); SPECIFIC GRAVITY URINE AUTO 1.014 (1.002-1.035); SQUAMOUS EPITHELIAL CELL UR AU 7 /HPF (0-6); UROBILINOGEN, URINE AUTO 0.2 mg/dL (0.0-2.0); WBC, URINE AUTO 11 /HPF (0-3)
== END ==
LOC: M SMT 13:35
DX: N13.2 Hydronephrosis with renal and ureteral calculous obstruction (principal)
CPT/HCPCS: 81001

== ENCOUNTER → 2018-04-21 | Outpatient (CLI) | payer MEDICARE, MEDICAID | LOC: M RAD 16:24 | DX: N13.2 Hydronephrosis with renal and ureteral calculous obstruction (principal) | CPT/HCPCS: 76775 ==

== ENCOUNTER → 2018-06-04 | Outpatient (CLI) | payer MEDICARE, MEDICAID | LOC: M RAD 12:17 | DX: M79.641 Pain in right hand (principal) | CPT/HCPCS: 73130 ==

== ENCOUNTER → 2018-09-02 | Outpatient (REF) | payer MEDICARE, MEDICAID ==
[~2018-09-02] MED LIST changes: +/PREG100CA PO; +/PREG50CA PO; +ACET30TAB PO; +ALLE180T33 PO; +ALLE24TA8 PO; +ASPI-225 PO; +ASPI81TAEC PO; +AUGM875T27 PO; +BACL10TA2 PO; +BENT10CA PO; +CICL0.7739 EXT; +CIPR-249 PO; +CIPR1TAB20 PO; +DEPA250T2 PO; +DEPA500T2 PO; +FLAG500T PO; +FLEX10TA2 PO; +FLOM0.4C39; +FLOM0.4C39 PO; +FOLI1TAB11 PO; +HYDR-3713; +HYDR-3716 PO; +IBUP-1022 PO; -ISOVUE-M 300 61% 15ML VIAL (Q9967) As Ordered; +LANS30CA PO; -LIDOCAINE 1% SDV INJ 30 ML VIAL As Ordered; +LYRI200C PO; +MAXA10TA20 PO; +MELO7.5T3 PO; +METH2.5T PO; +METH2.5T48 PO; +METR-201; +METR-201 PO; +NORC1TAB4 PO; +NORT25CA2 PO; +OMEP20CA3 PO; +PAME25CA PO; +PANT40TA3 PO; +PATA0.2S OU; +PRED10TA2 PO; +PRED20TA PO; +REFR0.5D8 OU; +REGL10TA6 PO; +VICO5TA PO; +VITMTA PO; +VOLT1GEL2 TD; +albuterol MDI INH; +hydrocodone OR; -methylPREDNISolone SUSP 40 MG/ML (DEPO-medrol) VIAL (J1030) As Ordered
[2018-09-02 13:08] LABS: BASO % 0.5 % (0.0-1.0); EOS # 0.1 10^3/uL (0.0-0.50); EOS % 1.7 % (0.0-3.0); HEMATOCRIT 43.4 % (36.0-47.0); HEMOGLOBIN 14.5 g/dl (12.0-15.5); LYMPH % 25.8 % (24.0-44.0); MEAN CORPUSCULAR HEMOGLOBIN 29.1 pg (27.0-33.0); MEAN CORPUSCULAR HGB CONC 33.4 g/dl (32.0-36.5); MONO # 0.5 10^3/uL (0.0-0.8); MONO % 5.9 % (0.0-5.0); NEUTROPHILS # 5.1 10^3/uL (1.8-7.7); NEUTROPHILS % 65.7 % (36.0-66.0); PLATELET COUNT, AUTOMATED 297 10^3/uL (150-450); RED BLOOD COUNT 4.99 10^6/uL (4.00-5.40); WHITE BLOOD COUNT 7.8 10^3/uL (4.0-10.0)
[2018-09-02 13:31] LABS: ALBUMIN 3.8 GM/DL (3.2-5.2); ALT/SGPT 43 U/L (12-78); BILIRUBIN,TOTAL 0.2 MG/DL (0.2-1.0); BLOOD UREA NITROGEN 16 MG/DL (7-18); CALCIUM LEVEL 9.2 MG/DL (8.5-10.1); CARBON DIOXIDE LEVEL 26 MEQ/L (21-32); CHLORIDE LEVEL 108 MEQ/L (98-107); CREATININE FOR GFR 0.58 MG/DL (0.55-1.30); GLOMERULAR FILTRATION RATE > 60.0 (>58); GLUCOSE, FASTING 76 MG/DL (70-100); POTASSIUM SERUM 4.7 MEQ/L (3.5-5.1); SODIUM LEVEL 139 MEQ/L (136-145); TOTAL PROTEIN 7.1 GM/DL (6.4-8.2)
[2018-09-02 13:45] LABS: ERYTHROCYTE SEDIMENTATION RATE 20 mm/hr (0-20)
== END ==
LOC: M LABNEURO 12:06
PROVIDERS: ATTEND Internal Medicine Rheumatology
DX: Z79.899 Other long term (current) drug therapy (principal)

== ENCOUNTER 2018-11-08 14:56 | Emergency (ER) | payer MEDICARE, MEDICAID ==
[~2018-11-08] VITALS: Ht 160 cm; Wt 68.6 kg
[2018-11-08] MEDS ORDERED: PROMETHAZINE INJ 25 MG/ML VIAL (J2550) IV ONE (15:30)
[2018-11-08] MEDS ORDERED: KETOROLAC 30 MG/ML VIAL (J1885) IV ONE (15:30)
[2018-11-08] MEDS ORDERED: NS 1,000 ML IV ONE (15:30)
[2018-11-08 15:55] LABS: BASO % 0.3 % (0.0-1.0); EOS # 0.1 10^3/uL (0.0-0.50); EOS % 1.1 % (0.0-3.0); HEMATOCRIT 41.6 % (36.0-47.0); HEMOGLOBIN 14.2 g/dl (12.0-15.5); LYMPH # 2.4 10^3/uL (1.5-4.5); LYMPH % 22.9 % (24.0-44.0); MEAN CORPUSCULAR HEMOGLOBIN 29.1 pg (27.0-33.0); MEAN CORPUSCULAR HGB CONC 34.1 g/dl (32.0-36.5); MEAN CORPUSCULAR VOLUME 85.2 fl (80.0-96.0); MONO # 0.7 10^3/uL (0.0-0.8); NEUTROPHILS % 68.4 % (36.0-66.0); PLATELET COUNT, AUTOMATED 249 10^3/uL (150-450); RED BLOOD COUNT 4.88 10^6/uL (4.00-5.40); WHITE BLOOD COUNT 10.3 10^3/uL (4.0-10.0)
[2018-11-08 16:23] LABS: INFLUENZA A AMPLIFICATION NEGATIVE (NEGATIVE); INFLUENZA B AMPLIFICATION NEGATIVE (NEGATIVE)
[2018-11-08 16:26] LABS: ALBUMIN 3.7 GM/DL (3.2-5.2); ALT/SGPT 32 U/L (12-78); BILIRUBIN,DIRECT 0.1 MG/DL (0.0-0.2); BILIRUBIN,TOTAL 0.4 MG/DL (0.2-1.0); BLOOD UREA NITROGEN 21 MG/DL (7-18); CALCIUM LEVEL 8.8 MG/DL (8.5-10.1); CARBON DIOXIDE LEVEL 28 MEQ/L (21-32); CHLORIDE LEVEL 106 MEQ/L (98-107); CREATININE FOR GFR 0.62 MG/DL (0.55-1.30); GLOMERULAR FILTRATION RATE > 60.0 (>58); GLUCOSE, FASTING 76 MG/DL (70-100); LIPASE 194 U/L (73-393); POTASSIUM SERUM 3.3 MEQ/L (3.5-5.1); SODIUM LEVEL 142 MEQ/L (136-145); TOTAL PROTEIN 7.1 GM/DL (6.4-8.2)
[2018-11-08] MEDS ORDERED: POTASSIUM CHLORIDE 10 MEQ SR TABLET PO ONE (16:45)
[2018-11-08] MEDS ORDERED: CIPR-249 PO (18:17)
[2018-11-08] MEDS ORDERED: CIPROFLOXACIN 400 MG in APPROPRIATE DILUENT 1 EA IV ONE (18:30)
[2018-11-08 19:53] VITALS: BP 101/73
--- NOTE | 2018-11-09 07:43 | REP ---
ABDOMEN FLAT UPRIGHT PA CHEST, THREE VIEWS: HISTORY: Abdominal pain. COMPARISON: 03/11/2006 Air is present in small and large intestine. Subtle air fluid levels are present. There are no dilated loops of intestine. There is no pneumoperitoneum. The lungs are clear. IMPRESSION: Nonspecific bowel gas pattern. Electronically Signed by German Lopez MD 11/09/2018 08:07 A
--- NOTE | 2018-11-09 18:41 | ECGEPIP ---
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
== END 2018-11-08 19:55 | disposition home or self-care (01) ==
LOC: M ED 14:56
DX: N39.0 Urinary tract infection, site not specified (principal); E87.6 Hypokalemia; R11.10 Vomiting, unspecified; R19.7 Diarrhea, unspecified; R51 Headache; H53.149 Visual discomfort, unspecified; F32.9 Major depressive disorder, single episode, unspecified; M79.7 Fibromyalgia; M32.9 Systemic lupus erythematosus, unspecified; M35.00 Sjogren syndrome, unspecified; I73.00 Raynaud's syndrome without gangrene; K58.9 Irritable bowel syndrome, unspecified; F17.210 Nicotine dependence, cigarettes, uncomplicated; Z87.19 Personal history of other diseases of the digestive system; Z91.040 Latex allergy status; Z79.899 Other long term (current) drug therapy; Z79.82 Long term (current) use of aspirin
CPT/HCPCS: 74021; 80048; 80076; 81001; 83690; 85025; 87086; 87502; 93005; 93041; 96374; 96375; 99285; J0744; J1885

== ENCOUNTER → 2019-05-01 | Outpatient (CLI) | payer MEDICARE, MEDICAID ==
[~2019-05-01] MED LIST changes: -/PREG100CA PO; -/PREG50CA PO; +ACET-716 PO; -ACET30TAB PO; +LYRI100C PO; +LYRI50CA PO; -METR-201; -METR-201 PO; +METR-265; +METR-265 PO; -NORC1TAB4 PO; +NORC1TAB7 PO
[2019-05-01 13:26] LABS: BASO % 0.2 % (0.0-1.0); EOS # 0.1 10^3/uL (0.0-0.5); EOS % 1.3 % (0.0-3.0); HEMATOCRIT 39.1 % (36.0-47.0); HEMOGLOBIN 13.2 g/dl (12.0-15.5); LYMPH % 22.1 % (24.0-44.0); MEAN CORPUSCULAR HEMOGLOBIN 30.1 pg (27.0-33.0); MEAN CORPUSCULAR HGB CONC 33.8 g/dl (32.0-36.5); MEAN CORPUSCULAR VOLUME 89.1 fl (80.0-96.0); MONO # 0.7 10^3/uL (0.0-0.8); MONO % 7.8 % (0.0-5.0); NEUTROPHILS # 6.2 10^3/uL (1.5-8.5); NEUTROPHILS % 68.2 % (36.0-66.0); PLATELET COUNT, AUTOMATED 296 10^3/uL (150-450); RED BLOOD COUNT 4.39 10^6/uL (4.00-5.40); WHITE BLOOD COUNT 9.1 10^3/uL (4.0-10.0)
[2019-05-01 13:49] LABS: ALBUMIN 3.5 GM/DL (3.2-5.2); ALT/SGPT 27 U/L (12-78); BILIRUBIN,TOTAL 0.3 MG/DL (0.2-1.0); BLOOD UREA NITROGEN 11 MG/DL (7-18); C REACTIVE PROTEIN QUANTITATIV 1.33 MG/DL (0.00-0.30); CALCIUM LEVEL 9.2 MG/DL (8.5-10.1); CARBON DIOXIDE LEVEL 25 MEQ/L (21-32); CHLORIDE LEVEL 111 MEQ/L (98-107); CHOLESTEROL LEVEL 189 MG/DL (<200); CHOLESTEROL RISK RATIO 3.436 (<5); FREE T4 1.05 NG/DL (0.76-1.46); GLOMERULAR FILTRATION RATE > 60.0 (>51); GLUCOSE, FASTING 94 MG/DL (70-100); HDL CHOLESTEROL 55 MG/DL (>40); LDL CHOLESTEROL 119 MG/DL (<100); NON-HDL-C 134 MG/DL; POTASSIUM SERUM 3.6 MEQ/L (3.5-5.1); SODIUM LEVEL 143 MEQ/L (136-145); THYROID STIMULATING HORMONE 0.675 uIU/ML (0.358-3.740); TOTAL PROTEIN 6.7 GM/DL (6.4-8.2); TRIGLYCERIDES LEVEL 74 MG/DL (<150)
[2019-05-01 14:04] LABS: ERYTHROCYTE SEDIMENTATION RATE 19 mm/hr (0-30)
[2019-05-02 15:07] LABS: ANTI DOUBLE STRAND-DNA AB <1 IU/mL (0-9); ANTINUCLEAR ANTIBODIES DIRECT Positive (Negative); RNP ANTIBODIES <0.2 AI (0.0-0.9); SJOGREN'S ANTI SS-A 1.4 AI (0.0-0.9); SJOGREN'S ANTI SS-B <0.2 AI (0.0-0.9); SMITH ANTIBODIES <0.2 AI (0.0-0.9)
== END ==
LOC: M SMT 09:41
PROVIDERS: ATTEND Physician Assistant
DX: Z13.29 Encounter for screening for other suspected endocrine disorder (principal)

== ENCOUNTER 2019-08-13 18:30 | Emergency (ER) | payer MEDICARE, MEDICAID ==
[~2019-08-13] VITALS: Ht 160 cm; Wt 74.1 kg
[~2019-08-13 18:30] MED LIST changes: -ASPI-225 PO; +ASPI81TA78 PO
[2019-08-13 18:59] LABS: BASO # 0.1 10^3/uL (0.0-0.2); BASO % 0.3 % (0.0-1.0); EOS # 0.1 10^3/uL (0.0-0.5); EOS % 0.4 % (0.0-3.0); HEMOGLOBIN 14.4 g/dl (12.0-15.5); LYMPH # 2.7 10^3/uL (1.5-5.0); MEAN CORPUSCULAR HGB CONC 32.7 g/dl (32.0-36.5); MEAN CORPUSCULAR VOLUME 85.6 fl (80.0-96.0); MONO # 0.8 10^3/uL (0.0-0.8); MONO % 5.3 % (0.0-5.0); NEUTROPHILS # 11.3 10^3/uL (1.5-8.5); NEUTROPHILS % 75.6 % (36.0-66.0); PLATELET COUNT, AUTOMATED 319 10^3/uL (150-450); RED BLOOD COUNT 5.14 10^6/uL (4.00-5.40)
[2019-08-13 19:30] LABS: BLOOD UREA NITROGEN 13 MG/DL (7-18); CALCIUM LEVEL 9.5 MG/DL (8.5-10.1); CARBON DIOXIDE LEVEL 24 MEQ/L (21-32); CHLORIDE LEVEL 108 MEQ/L (98-107); GLOMERULAR FILTRATION RATE > 60.0 (>51); GLUCOSE, FASTING 100 MG/DL (70-100); POTASSIUM SERUM 3.1 MEQ/L (3.5-5.1); SODIUM LEVEL 141 MEQ/L (136-145); THYROID STIMULATING HORMONE 0.627 uIU/ML (0.358-3.740)
[2019-08-13] MEDS ORDERED: NS 1,000 ML IV ONE (19:30)
--- NOTE | 2019-08-13 20:27 | REPVR ---
PROCEDURE INFORMATION: Exam: CT Head Without Contrast Exam date and time: 08/13/2019 7:54 PM Age: 49 years old Clinical indication: Syncope and collapse; Additional info: Sync TECHNIQUE: Imaging protocol: Computed tomography of the head without contrast. Radiation optimization: All CT scans at this facility use at least one of these dose optimization techniques: automated exposure control; mA and/or kV adjustment per patient size (includes targeted exams where dose is matched to clinical indication); or iterative reconstruction. COMPARISON: CT Head without contrast 08/29/2017 10:09 PM FINDINGS: Brain: The fernández-white differentiation is maintained. No hemorrhage. No edema. Ventricles: There is disproportional prominence of the lateral ventricles relative to the other CSF spaces, perhaps on the basis of atrophy but given the involvement of temporal horns the possibility of communicating hydrocephalus should be considered. Bones/joints: Unremarkable. No acute fracture. Sinuses: Visualized sinuses are unremarkable. No fluid levels. Mastoid air cells: Visualized mastoid air cells are well aerated. Soft tissues: Unremarkable. IMPRESSION: No acute intracranial abnormality. There is disproportional prominence of the lateral ventricles relative to the other CSF spaces, perhaps on the basis of atrophy but given the involvement of temporal horns the possibility of communicating hydrocephalus should be considered. Electronically signed by: Gerardo Rose On 08/13/2019 20:27:02 PM
[2019-08-13] MEDS ORDERED: POTASSIUM CHLORIDE 10 MEQ SR TABLET PO ONE (21:00)
[2019-08-13 22:15] VITALS: O2SAT 94
[2019-08-13 22:34] VITALS: BP 123/70
--- NOTE | 2019-08-14 22:31 | ECGEPIP ---
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
== END 2019-08-13 22:46 | disposition home or self-care (01) ==
LOC: M ED 18:30
DX: E86.0 Dehydration (principal); M79.7 Fibromyalgia; Z79.82 Long term (current) use of aspirin; Z79.891 Long term (current) use of opiate analgesic; Z91.040 Latex allergy status

== ENCOUNTER → 2019-11-03 | Outpatient (CLI) | payer MEDICARE, MEDICAID ==
[2019-11-03 15:27] LABS: BASO % 0.4 % (0.0-1.0); EOS # 0.2 10^3/uL (0.0-0.5); EOS % 1.9 % (0.0-3.0); HEMATOCRIT 42.2 % (36.0-47.0); HEMOGLOBIN 13.8 g/dl (12.0-15.5); LYMPH % 35.6 % (24.0-44.0); MEAN CORPUSCULAR HEMOGLOBIN 27.7 pg (27.0-33.0); MEAN CORPUSCULAR HGB CONC 32.7 g/dl (32.0-36.5); MEAN CORPUSCULAR VOLUME 84.6 fl (80.0-96.0); MONO # 0.7 10^3/uL (0.0-0.8); NEUTROPHILS # 4.5 10^3/uL (1.5-8.5); NEUTROPHILS % 53.7 % (36.0-66.0); PLATELET COUNT, AUTOMATED 320 10^3/uL (150-450); RED BLOOD COUNT 4.99 10^6/uL (4.00-5.40); WHITE BLOOD COUNT 8.4 10^3/uL (4.0-10.0)
[2019-11-03 15:52] LABS: ALBUMIN 3.6 GM/DL (3.2-5.2); ALT/SGPT 27 U/L (12-78); BILIRUBIN,TOTAL 0.2 MG/DL (0.2-1.0); BLOOD UREA NITROGEN 14 MG/DL (7-18); CALCIUM LEVEL 9.3 MG/DL (8.5-10.1); CARBON DIOXIDE LEVEL 28 MEQ/L (21-32); CHLORIDE LEVEL 108 MEQ/L (98-107); CREATININE FOR GFR 0.66 MG/DL (0.55-1.30); FREE T4 1.16 NG/DL (0.76-1.46); GLOMERULAR FILTRATION RATE > 60.0 (>51); GLUCOSE, FASTING 84 MG/DL (70-100); POTASSIUM SERUM 3.6 MEQ/L (3.5-5.1); SODIUM LEVEL 141 MEQ/L (136-145); TOTAL PROTEIN 7.1 GM/DL (6.4-8.2)
== END ==
LOC: M PLALAB 13:02
PROVIDERS: ATTEND Family Medicine
DX: M32.9 Systemic lupus erythematosus, unspecified (principal); G43.009 Migraine without aura, not intractable, without status migrainosus; K58.8 Other irritable bowel syndrome; R60.0 Localized edema

== ENCOUNTER → 2020-05-09 | Outpatient (CLI) | payer MEDICARE, MEDICAID ==
[~2020-05-09] MED LIST changes: +OLOP2.5D3 OU; +PANT40TA29 PO; -PANT40TA3 PO; -PATA0.2S OU
[2020-05-09 13:33] LABS: BASO % 0.5 % (0.0-1.0); EOS # 0.1 10^3/uL (0.0-0.5); EOS % 1.6 % (0.0-3.0); HEMATOCRIT 44.7 % (36.0-47.0); HEMOGLOBIN 14.9 g/dl (12.0-15.5); LYMPH # 2.4 10^3/uL (1.5-5.0); LYMPH % 30.1 % (24.0-44.0); MEAN CORPUSCULAR HGB CONC 33.3 g/dl (32.0-36.5); MONO # 0.6 10^3/uL (0.0-0.8); NEUTROPHILS # 4.9 10^3/uL (1.5-8.5); NEUTROPHILS % 60.3 % (36.0-66.0); PLATELET COUNT, AUTOMATED 332 10^3/uL (150-450); RED BLOOD COUNT 5.32 10^6/uL (4.00-5.40); WHITE BLOOD COUNT 8.1 10^3/uL (4.0-10.0)
[2020-05-09 13:48] LABS: ALBUMIN 3.7 GM/DL (3.2-5.2); ALT/SGPT 40 U/L (12-78); BILIRUBIN,TOTAL 0.4 MG/DL (0.2-1.0); BLOOD UREA NITROGEN 15 MG/DL (7-18); CALCIUM LEVEL 9.4 MG/DL (8.5-10.1); CARBON DIOXIDE LEVEL 27 MEQ/L (21-32); CHLORIDE LEVEL 107 MEQ/L (98-107); CREATININE FOR GFR 0.71 MG/DL (0.55-1.30); FREE T4 1.16 NG/DL (0.76-1.46); GLOMERULAR FILTRATION RATE > 60.0 (>51); GLUCOSE, FASTING 85 MG/DL (70-100); POTASSIUM SERUM 3.7 MEQ/L (3.5-5.1); SODIUM LEVEL 141 MEQ/L (136-145); TOTAL PROTEIN 7.4 GM/DL (6.4-8.2)
[2020-05-09 14:33] LABS: HEMOGLOBIN A1c 5.2 %
== END ==
LOC: M PLALAB 11:42
PROVIDERS: ATTEND Family Medicine
DX: E16.1 Other hypoglycemia (principal); M32.9 Systemic lupus erythematosus, unspecified

== ENCOUNTER → 2020-05-19 | Outpatient (CLI) | payer MEDICARE, MEDICAID ==
--- NOTE | 2020-05-25 11:23 | REP ---
RIGHT HIP: 2-VIEWS HISTORY: Right hip pain. FINDINGS: AP and frog leg views of the right hip demonstrate a smooth rounded femoral head and intact hip joint space. Periarticular soft tissues are unremarkable. Right hemipelvis appears intact. IMPRESSION: Negative right hip radiographs. MTDD
--- NOTE | 2020-05-25 11:24 | REP ---
LUMBAR SPINE SERIES: 7-VIEWS HISTORY: Low back pain. COMPARISON IMAGING: None. FINDINGS: There are clips in the right upper quadrant. There is a minimal levoconvex curve. Lumbar vertebral body heights are preserved. Alignment is otherwise normal. There is no evidence of spondylolysis or spondylolisthesis. There are mild degenerative disc changes at L4-5 and L3-4 and to a lesser extent at the thoracolumbar junction. There is mild facet hypertrophy and sclerosis bilaterally at L5-S1. Sacrum and sacroiliac (SI) joints are intact. No bony destructive lesion. IMPRESSION: Mild degenerative spondylosis changes. No acute abnormality. MTDD
== END ==
LOC: M RAD 14:01
PROVIDERS: ATTEND Family Medicine
DX: M51.36 Other intervertebral disc degeneration, lumbar region (principal); M51.37 Other intervertebral disc degeneration, lumbosacral region

== ENCOUNTER → 2020-08-10 | Outpatient (CLI) | payer MEDICARE, MEDICAID ==
[2020-08-10 11:17] LABS: BASO % 0.5 % (0.0-1.0); EOS # 0.2 10^3/uL (0.0-0.5); HEMATOCRIT 43.8 % (36.0-47.0); LYMPH # 3.1 10^3/uL (1.5-5.0); MEAN CORPUSCULAR HEMOGLOBIN 27.3 pg (27.0-33.0); MEAN CORPUSCULAR VOLUME 85.5 fl (80.0-96.0); MONO # 0.7 10^3/uL (0.0-0.8); MONO % 7.6 % (0.0-5.0); NEUTROPHILS # 4.8 10^3/uL (1.5-8.5); NEUTROPHILS % 54.4 % (36.0-66.0); PLATELET COUNT, AUTOMATED 348 10^3/uL (150-450); RED BLOOD COUNT 5.12 10^6/uL (4.00-5.40); WHITE BLOOD COUNT 8.8 10^3/uL (4.0-10.0)
[2020-08-10 11:51] LABS: ALBUMIN 3.7 GM/DL (3.2-5.2); ALT/SGPT 36 U/L (12-78); BILIRUBIN,TOTAL 0.4 MG/DL (0.2-1.0); BLOOD UREA NITROGEN 19 MG/DL (7-18); CALCIUM LEVEL 9.8 MG/DL (8.5-10.1); CARBON DIOXIDE LEVEL 31 MEQ/L (21-32); CHLORIDE LEVEL 106 MEQ/L (98-107); CREATININE FOR GFR 0.69 MG/DL (0.55-1.30); GLOMERULAR FILTRATION RATE > 60.0 (>51); GLUCOSE, FASTING 77 MG/DL (70-100); POTASSIUM SERUM 3.7 MEQ/L (3.5-5.1); SODIUM LEVEL 140 MEQ/L (136-145); TOTAL PROTEIN 7.1 GM/DL (6.4-8.2)
== END ==
LOC: M PLALAB 09:41
PROVIDERS: ATTEND Physician Assistant
DX: E16.1 Other hypoglycemia (principal); K58.8 Other irritable bowel syndrome

== ENCOUNTER → 2020-08-15 | Outpatient (CLI) | payer MEDICARE, MEDICAID ==
[~2020-08-15] MED LIST changes: +GASTROGRAFIN SOLUTION 30ML (Q9963) As Ordered ONE; +ISOVUE-370 76% 100ML VIAL As Ordered ONE
--- NOTE | 2020-08-15 17:11 | REP ---
INDICATION: HYPOGLYCEMIA. COMPARISON: 03/31/2018 TECHNIQUE: Axial contrast-enhanced images from the lung bases to the pubic symphysis using 100 cc Isovue 370 intravenous contrast material. Precontrast images of the abdomen obtained along with coronal and sagittal reformations.. This CT examination was performed using the following dose reduction techniques: Automated exposure control, adjustment of mA and/or kv according to the patient's size, and the use of iterative reconstruction technique. FINDINGS: Liver, spleen, pancreas, bilateral adrenal glands and kidneys are normal. Evidence for prior cholecystectomy noted. The enteric system including stomach, small, and large bowel appears normal. No evidence for obstruction or acute inflammatory process. Normal terminal ileum and appendix are identified in the right lower quadrant. Scattered colonic diverticula noted without acute diverticulitis. Pelvis demonstrates normal bladder and prior hysterectomy. No ascites. No free air. No intraperitoneal or retroperitoneal adenopathy. Abdominal aorta and vasculature appear normal. Incidental circumaortic left renal veins noted. Musculoskeletal structures are intact and without acute osseous abnormality. IMPRESSION: 1. No acute abdominopelvic pathology appreciated. <Electronically signed by Laron Dye > 08/15/20 [id number]
== END ==
LOC: M RAD 14:32
PROVIDERS: ATTEND Physician Assistant
DX: E16.1 Other hypoglycemia (principal)
CPT/HCPCS: 74178; Q9963; Q9967

== ENCOUNTER → 2020-11-10 | Outpatient (CLI) | payer MEDICARE, MEDICAID ==
[~2020-11-10] MED LIST changes: +ASPI-569 PO; -ASPI81TAEC PO; -GASTROGRAFIN SOLUTION 30ML (Q9963) As Ordered ONE; -ISOVUE-370 76% 100ML VIAL As Ordered ONE
[2020-11-10 17:39] LABS: BASO % 0.4 % (0.0-1.0); EOS # 0.1 10^3/uL (0.0-0.5); EOS % 0.5 % (0.0-3.0); HEMOGLOBIN 14.1 g/dl (12.0-15.5); LYMPH # 2.3 10^3/uL (1.5-5.0); LYMPH % 21.6 % (24.0-44.0); MEAN CORPUSCULAR HEMOGLOBIN 27.3 pg (27.0-33.0); MEAN CORPUSCULAR HGB CONC 32.8 g/dl (32.0-36.5); MEAN CORPUSCULAR VOLUME 83.3 fl (80.0-96.0); MONO # 0.6 10^3/uL (0.0-0.8); MONO % 5.4 % (2.0-8.0); NEUTROPHILS # 7.8 10^3/uL (1.5-8.5); NEUTROPHILS % 71.7 % (36.0-66.0); PLATELET COUNT, AUTOMATED 355 10^3/uL (150-450); RED BLOOD COUNT 5.16 10^6/uL (4.00-5.40); WHITE BLOOD COUNT 10.8 10^3/uL (4.0-10.0)
[2020-11-10 18:29] LABS: ALBUMIN 3.6 GM/DL (3.2-5.2); ALT/SGPT 34 U/L (12-78); BILIRUBIN,TOTAL 0.2 MG/DL (0.2-1.0); BLOOD UREA NITROGEN 17 MG/DL (7-18); CALCIUM LEVEL 9.4 MG/DL (8.5-10.1); CARBON DIOXIDE LEVEL 30 MEQ/L (21-32); CHLORIDE LEVEL 110 MEQ/L (98-107); CREATININE FOR GFR 0.61 MG/DL (0.55-1.30); GLOMERULAR FILTRATION RATE > 60.0 (>51); GLUCOSE, FASTING 103 MG/DL (70-100); POTASSIUM SERUM 3.6 MEQ/L (3.5-5.1); SODIUM LEVEL 144 MEQ/L (136-145); TOTAL PROTEIN 7.1 GM/DL (6.4-8.2)
[2020-11-10 18:32] LABS: ERYTHROCYTE SEDIMENTATION RATE 43 mm/hr (0-30)
== END ==
LOC: M LAB 16:23
PROVIDERS: ATTEND Internal Medicine Rheumatology
DX: M32.19 Other organ or system involvement in systemic lupus erythematosus (principal); Z79.899 Other long term (current) drug therapy

== ENCOUNTER → 2021-01-18 | Outpatient (REF) | payer MEDICARE, MEDICAID | LOC: M LAB REF 17:10 | PROVIDERS: ATTEND Physician Assistant | DX: R10.31 Right lower quadrant pain (principal) ==

== ENCOUNTER → 2021-01-21 | Outpatient (CLI) | payer MEDICARE, MEDICAID ==
--- NOTE | 2021-01-21 09:43 | REP ---
INDICATION: RIGHT LOWER QUADRANT PAINSTONE PROTOCOL COMPARISON: 08/15/2020 TECHNIQUE: Axial noncontrast images from the lung bases to the pubic symphysis with coronal and sagittal reformations. This CT examination was performed using the following dose reduction techniques: Automated exposure control, adjustment of mA and/or kv according to the patient's size, and use of iterative reconstruction technique. FINDINGS: Lung bases are clear. Visualized heart and pericardium normal. Liver, spleen, pancreas, bilateral adrenal glands and kidneys are normal. Specifically, no hydroureteronephrosis, perinephric stranding, or nephroureterolithiasis is appreciated. Patient is noted to be status post cholecystectomy. The enteric system is unremarkable and without obstruction or acute inflammatory process. Normal terminal ileum and appendix identified in the right lower quadrant. Pelvis demonstrates normal bladder and evidence for prior hysterectomy. No ascites. No free air. No adenopathy. No focal inflammatory stranding. Abdominal aorta without aneurysm. Musculoskeletal structures are intact and without acute osseous abnormality. IMPRESSION: No acute abdominopelvic pathology appreciated. Normal appearance of the urinary tract system. Prior hysterectomy and cholecystectomy. <Electronically signed by Laron Dye > 01/21/21 [id number]
== END ==
LOC: M RAD 09:05
PROVIDERS: ATTEND Physician Assistant
DX: R10.31 Right lower quadrant pain (principal)

== ENCOUNTER → 2021-05-22 | Outpatient (REF) | payer MEDICARE, MEDICAID | LOC: M LAB REF 17:12 | PROVIDERS: ATTEND Physician Assistant | DX: K58.0 Irritable bowel syndrome with diarrhea (principal) ==

== ENCOUNTER → 2021-06-14 | Outpatient (CLI) | payer MEDICARE, MEDICAID ==
[2021-06-14 17:23] LABS: BASO # 0.1 10^3/uL (0.0-0.2); BASO % 0.4 % (0.0-1.0); EOS # 0.1 10^3/uL (0.0-0.5); EOS % 0.8 % (0.0-3.0); HEMATOCRIT 43.5 % (36.0-47.0); HEMOGLOBIN 14.3 g/dl (12.0-15.5); LYMPH # 3.1 10^3/uL (1.5-5.0); LYMPH % 26.3 % (24.0-44.0); MEAN CORPUSCULAR HEMOGLOBIN 27.8 pg (27.0-33.0); MEAN CORPUSCULAR HGB CONC 32.9 g/dl (32.0-36.5); MEAN CORPUSCULAR VOLUME 84.6 fl (80.0-96.0); MONO # 0.7 10^3/uL (0.0-0.8); MONO % 5.6 % (2.0-8.0); NEUTROPHILS # 7.8 10^3/uL (1.5-8.5); NEUTROPHILS % 66.4 % (36.0-66.0); PLATELET COUNT, AUTOMATED 351 10^3/uL (150-450); RED BLOOD COUNT 5.14 10^6/uL (4.00-5.40); WHITE BLOOD COUNT 11.8 10^3/uL (4.0-10.0)
[2021-06-14 17:47] LABS: ALBUMIN 3.6 GM/DL (3.2-5.2); ALT/SGPT 31 U/L (12-78); BILIRUBIN,TOTAL 0.4 MG/DL (0.2-1.0); BLOOD UREA NITROGEN 16 MG/DL (7-18); CALCIUM LEVEL 9.8 MG/DL (8.5-10.1); CARBON DIOXIDE LEVEL 28 MEQ/L (21-32); CHLORIDE LEVEL 106 MEQ/L (98-107); CHOLESTEROL LEVEL 233 MG/DL (<200); CHOLESTEROL RISK RATIO 3.819 (<5); CREATININE FOR GFR 0.68 MG/DL (0.55-1.30); FREE T4 1.06 NG/DL (0.76-1.46); GLOMERULAR FILTRATION RATE > 60.0 (>51); GLUCOSE, FASTING 90 MG/DL (70-100); HDL CHOLESTEROL 61 MG/DL (>40); LDL CHOLESTEROL 128 MG/DL (<100); NON-HDL-C 172 MG/DL; POTASSIUM SERUM 3.4 MEQ/L (3.5-5.1); SODIUM LEVEL 140 MEQ/L (136-145); TOTAL PROTEIN 7.3 GM/DL (6.4-8.2); TRIGLYCERIDES LEVEL 222 MG/DL (<150)
== END ==
LOC: M PLALAB 13:50
PROVIDERS: ATTEND Physician Assistant
DX: Z00.00 Encounter for general adult medical examination without abnormal findings (principal); M32.9 Systemic lupus erythematosus, unspecified; Z13.220 Encounter for screening for lipoid disorders; R60.0 Localized edema; Z79.899 Other long term (current) drug therapy

== ENCOUNTER → 2021-11-02 | Outpatient (CLI) | payer MEDICARE, MEDICAID ==
[2021-11-02 13:34] LABS: BASO % 0.5 % (0.0-1.0); EOS # 0.1 10^3/uL (0.0-0.5); EOS % 1.3 % (0.0-3.0); HEMOGLOBIN 14.7 g/dl (12.0-15.5); LYMPH # 2.4 10^3/uL (1.5-5.0); LYMPH % 28.5 % (24.0-44.0); MEAN CORPUSCULAR HEMOGLOBIN 28.1 pg (27.0-33.0); MEAN CORPUSCULAR HGB CONC 33.4 g/dl (32.0-36.5); MONO # 0.6 10^3/uL (0.0-0.8); MONO % 7.2 % (2.0-8.0); NEUTROPHILS # 5.2 10^3/uL (1.5-8.5); NEUTROPHILS % 62.1 % (36.0-66.0); PLATELET COUNT, AUTOMATED 348 10^3/uL (150-450); RED BLOOD COUNT 5.24 10^6/uL (4.00-5.40); WHITE BLOOD COUNT 8.3 10^3/uL (4.0-10.0)
[2021-11-02 14:25] LABS: ALBUMIN 3.6 GM/DL (3.2-5.2); ALT/SGPT 37 U/L (12-78); BILIRUBIN,TOTAL 0.3 MG/DL (0.2-1.0); BLOOD UREA NITROGEN 16 MG/DL (7-18); CALCIUM LEVEL 9.6 MG/DL (8.5-10.1); CARBON DIOXIDE LEVEL 29 MEQ/L (21-32); CHLORIDE LEVEL 107 MEQ/L (98-107); CHOLESTEROL LEVEL 218 MG/DL (<200); CHOLESTEROL RISK RATIO 3.963 (<5); CREATININE FOR GFR 0.63 MG/DL (0.55-1.30); FREE T4 1.11 NG/DL (0.76-1.46); GLOMERULAR FILTRATION RATE > 60.0 (>51); GLUCOSE, FASTING 79 MG/DL (70-100); HDL CHOLESTEROL 55 MG/DL (>40); LDL CHOLESTEROL 141 MG/DL (<100); NON-HDL-C 163 MG/DL; POTASSIUM SERUM 3.9 MEQ/L (3.5-5.1); SODIUM LEVEL 140 MEQ/L (136-145); TOTAL PROTEIN 7.3 GM/DL (6.4-8.2); TRIGLYCERIDES LEVEL 108 MG/DL (<150)
== END ==
LOC: M PLALAB 11:40
PROVIDERS: ATTEND Family Medicine
DX: M32.19 Other organ or system involvement in systemic lupus erythematosus (principal); Z13.29 Encounter for screening for other suspected endocrine disorder; Z13.0 Encounter for screening for diseases of the blood and blood-forming organs and certain disorders involving the immune mechanism; Z13.220 Encounter for screening for lipoid disorders; Z79.899 Other long term (current) drug therapy

== ENCOUNTER → 2021-11-02 | Outpatient (CLI) | payer MEDICARE, MEDICAID ==
[2021-11-02 13:29] LABS: BASO % 0.4 % (0.0-1.0); EOS # 0.1 10^3/uL (0.0-0.5); EOS % 1.3 % (0.0-3.0); HEMATOCRIT 43.6 % (36.0-47.0); HEMOGLOBIN 14.6 g/dl (12.0-15.5); LYMPH # 2.4 10^3/uL (1.5-5.0); LYMPH % 29.1 % (24.0-44.0); MEAN CORPUSCULAR HEMOGLOBIN 28.1 pg (27.0-33.0); MEAN CORPUSCULAR HGB CONC 33.5 g/dl (32.0-36.5); MONO # 0.6 10^3/uL (0.0-0.8); MONO % 7.3 % (2.0-8.0); NEUTROPHILS % 61.5 % (36.0-66.0); PLATELET COUNT, AUTOMATED 336 10^3/uL (150-450); RED BLOOD COUNT 5.19 10^6/uL (4.00-5.40); WHITE BLOOD COUNT 8.2 10^3/uL (4.0-10.0)
[2021-11-02 14:02] LABS: ERYTHROCYTE SEDIMENTATION RATE 28 mm/hr (0-30)
[2021-11-02 14:14] LABS: ALBUMIN 3.7 GM/DL (3.2-5.2); ALT/SGPT 31 U/L (12-78); BILIRUBIN,TOTAL 0.3 MG/DL (0.2-1.0); BLOOD UREA NITROGEN 16 MG/DL (7-18); C REACTIVE PROTEIN QUANTITATIV 0.69 MG/DL (0.00-0.30); CALCIUM LEVEL 9.8 MG/DL (8.5-10.1); CARBON DIOXIDE LEVEL 28 MEQ/L (21-32); CHLORIDE LEVEL 108 MEQ/L (98-107); CREATININE FOR GFR 0.67 MG/DL (0.55-1.30); GLOMERULAR FILTRATION RATE > 60.0 (>51); GLUCOSE, FASTING 80 MG/DL (70-100); POTASSIUM SERUM 3.9 MEQ/L (3.5-5.1); SODIUM LEVEL 141 MEQ/L (136-145); TOTAL PROTEIN 7.3 GM/DL (6.4-8.2)
== END ==
LOC: M PLALAB 11:44
PROVIDERS: ATTEND Internal Medicine Rheumatology
DX: M32.19 Other organ or system involvement in systemic lupus erythematosus (principal); Z79.899 Other long term (current) drug therapy

== ENCOUNTER → 2022-02-27 | Outpatient (CLI) | payer MEDICARE, MEDICAID ==
[2022-02-27 17:38] LABS: HEMATOCRIT 43.1 % (36.0-47.0); MEAN CORPUSCULAR HEMOGLOBIN 27.5 pg (27.0-33.0); MEAN CORPUSCULAR HGB CONC 32.5 g/dl (32.0-36.5); MEAN CORPUSCULAR VOLUME 84.7 fl (80.0-96.0); PLATELET COUNT, AUTOMATED 333 10^3/uL (150-450); RED BLOOD COUNT 5.09 10^6/uL (4.00-5.40); WHITE BLOOD COUNT 8.2 10^3/uL (4.0-10.0)
[2022-02-27 17:51] LABS: BLOOD UREA NITROGEN 16 MG/DL (7-18); CALCIUM LEVEL 9.8 MG/DL (8.5-10.1); CARBON DIOXIDE LEVEL 29 MEQ/L (21-32); CHLORIDE LEVEL 107 MEQ/L (98-107); CREATININE FOR GFR 0.57 MG/DL (0.55-1.30); GLOMERULAR FILTRATION RATE > 60.0 (>51); GLUCOSE, FASTING 89 MG/DL (70-100); POTASSIUM SERUM 4.1 MEQ/L (3.5-5.1); SODIUM LEVEL 140 MEQ/L (136-145)
[2022-02-27 18:02] LABS: ERYTHROCYTE SEDIMENTATION RATE 37 mm/hr (0-30)
== END ==
LOC: M PLALAB 15:30
PROVIDERS: ATTEND Internal Medicine Gastroenterology
DX: R10.13 Epigastric pain (principal); R19.4 Change in bowel habit

== ENCOUNTER → 2022-02-28 | Outpatient (REF) | payer MEDICARE, MEDICAID | LOC: M LAB REF 18:06 | PROVIDERS: ATTEND Internal Medicine Gastroenterology | DX: R10.13 Epigastric pain (principal); R19.4 Change in bowel habit ==

== ENCOUNTER → 2022-04-13 | Outpatient (REF) | payer MEDICARE, MEDICAID ==
[2022-04-13 15:41] LABS: APPEARANCE, URINE MANUAL CLEAR (CLEAR); COLOR, URINE MANUAL YELLOW (YELLOW); PROTEIN, URINE MANUAL NEGATIVE (NEGATIVE); SPECIFIC GRAVITY,URINE MANUAL 1.025 (1.002-1.035)
[2022-04-13 15:42] LABS: BILIRUBIN, URINE MANUAL NEGATIVE (NEGATIVE); BLOOD URINE MANUAL TRACE (NEGATIVE); GLUCOSE, URINE (UA) MANUAL NEGATIVE (NEGATIVE); KETONE, URINE MANUAL NEGATIVE (NEGATIVE); LEUKOCYTE ESTERASE, URINE MAN NEGATIVE (NEGATIVE); NITRITE, URINE MANUAL NEGATIVE (NEGATIVE); UROBILINOGEN, URINE MANUAL NORMAL (NORMAL)
[2022-04-13 15:52] LABS: RBC, URINE 0-1 /hpf (0-3)
[2022-04-13 15:55] LABS: BACTERIA, URINE SMALL AMOUNT; CALCIUM OXALATE CRYSTALS,URINE SMALL AMOUNT /hpf; HYALINE CAST, URINE NONE SEEN /lpf (0-1); MUCUS, URINE SMALL AMOUNT (NEGATIVE); SQUAMOUS EPITHELIAL CELL URINE SMALL AMOUNT /hpf (SMALL AMT)
== END ==
LOC: M SMT 15:06
PROVIDERS: ATTEND Nurse Practitioner Women's Health
DX: R31.9 Hematuria, unspecified (principal)

== ENCOUNTER → 2022-05-01 | Outpatient (CLI) | payer MEDICARE, MEDICAID ==
[2022-05-01 15:48] LABS: HEMATOCRIT 39.2 % (36.0-47.0); MEAN CORPUSCULAR HEMOGLOBIN 28.1 pg (27.0-33.0); MEAN CORPUSCULAR HGB CONC 33.2 g/dl (32.0-36.5); MEAN CORPUSCULAR VOLUME 84.7 fl (80.0-96.0); PLATELET COUNT, AUTOMATED 348 10^3/uL (150-450); RED BLOOD COUNT 4.63 10^6/uL (4.00-5.40)
[2022-05-01 16:33] LABS: ALBUMIN 3.7 GM/DL (3.2-5.2); ALT/SGPT 61 U/L (12-78); BILIRUBIN,DIRECT < 0.1 MG/DL (0.0-0.2); BILIRUBIN,TOTAL 0.2 MG/DL (0.2-1.0); C REACTIVE PROTEIN QUANTITATIV < 0.30 MG/DL (0.00-0.30); THYROID STIMULATING HORMONE 0.462 uIU/ML (0.358-3.740); TOTAL PROTEIN 7.4 GM/DL (6.4-8.2)
== END ==
LOC: M LAB 14:12
PROVIDERS: ATTEND Internal Medicine Gastroenterology
DX: R19.4 Change in bowel habit (principal); R10.13 Epigastric pain

== ENCOUNTER → 2022-07-04 | Outpatient (CLI) | payer MEDICARE, MEDICAID ==
[2022-07-04 12:20] LABS: BASO % 0.3 % (0.0-1.0); EOS # 0.1 10^3/uL (0.0-0.5); EOS % 0.6 % (0.0-3.0); HEMATOCRIT 41.6 % (36.0-47.0); HEMOGLOBIN 13.5 g/dl (12.0-15.5); LYMPH # 2.8 10^3/uL (1.5-5.0); LYMPH % 24.5 % (24.0-44.0); MEAN CORPUSCULAR HEMOGLOBIN 27.7 pg (27.0-33.0); MEAN CORPUSCULAR HGB CONC 32.5 g/dl (32.0-36.5); MEAN CORPUSCULAR VOLUME 85.4 fl (80.0-96.0); MONO # 0.8 10^3/uL (0.0-0.8); MONO % 7.3 % (2.0-8.0); NEUTROPHILS # 7.5 10^3/uL (1.5-8.5); NEUTROPHILS % 66.9 % (36.0-66.0); PLATELET COUNT, AUTOMATED 323 10^3/uL (150-450); RED BLOOD COUNT 4.87 10^6/uL (4.00-5.40); WHITE BLOOD COUNT 11.2 10^3/uL (4.0-10.0)
[2022-07-04 13:21] LABS: ALBUMIN 3.4 GM/DL (3.2-5.2); ALT/SGPT 63 U/L (12-78); BILIRUBIN,TOTAL 0.2 MG/DL (0.2-1.0); BLOOD UREA NITROGEN 14 MG/DL (7-18); CALCIUM LEVEL 9.3 MG/DL (8.5-10.1); CARBON DIOXIDE LEVEL 27 MEQ/L (21-32); CHLORIDE LEVEL 110 MEQ/L (98-107); CHOLESTEROL LEVEL 227 MG/DL (<200); CREATININE FOR GFR 0.59 MG/DL (0.55-1.30); FREE T4 0.91 NG/DL (0.76-1.46); GLOMERULAR FILTRATION RATE > 60.0 (>51); GLUCOSE, FASTING 57 MG/DL (70-100); HDL CHOLESTEROL 51 MG/DL (>40); LDL CHOLESTEROL 129 MG/DL (<100); NON-HDL-C 176 MG/DL; POTASSIUM SERUM 4.3 MEQ/L (3.5-5.1); SODIUM LEVEL 142 MEQ/L (136-145); TOTAL PROTEIN 6.7 GM/DL (6.4-8.2); TRIGLYCERIDES LEVEL 233 MG/DL (<150)
[2022-07-04 20:59] LABS: HEMOGLOBIN A1c 4.9 %
== END ==
LOC: M LAB 11:02
PROVIDERS: ATTEND Family Medicine
DX: Z13.220 Encounter for screening for lipoid disorders (principal); E16.2 Hypoglycemia, unspecified; Z13.29 Encounter for screening for other suspected endocrine disorder; Z79.899 Other long term (current) drug therapy

== ENCOUNTER → 2022-09-25 | Outpatient (CLI) | payer MEDICARE, MEDICAID | LOC: M PAIN 13:00 | PROVIDERS: ATTEND Nurse Practitioner Family | DX: M50.10 Cervical disc disorder with radiculopathy, unspecified cervical region (principal); M51.16 Intervertebral disc disorders with radiculopathy, lumbar region; M79.7 Fibromyalgia; F17.210 Nicotine dependence, cigarettes, uncomplicated; Z88.5 Allergy status to narcotic agent; Z88.8 Allergy status to other drugs, medicaments and biological substances; Z91.040 Latex allergy status; Z79.899 Other long term (current) drug therapy ==

== ENCOUNTER → 2022-11-08 | Outpatient (CLI) | payer MEDICARE, MEDICAID ==
[2022-11-08 15:52] LABS: HEMATOCRIT 40.7 % (36.0-47.0); HEMOGLOBIN 13.1 g/dl (12.0-15.5); MEAN CORPUSCULAR HEMOGLOBIN 27.6 pg (27.0-33.0); MEAN CORPUSCULAR HGB CONC 32.2 g/dl (32.0-36.5); MEAN CORPUSCULAR VOLUME 85.9 fl (80.0-96.0); PLATELET COUNT, AUTOMATED 303 10^3/uL (150-450); RED BLOOD COUNT 4.74 10^6/uL (4.00-5.40); WHITE BLOOD COUNT 9.5 10^3/uL (4.0-10.0)
[2022-11-08 16:01] LABS: ERYTHROCYTE SEDIMENTATION RATE 41 mm/hr (0-30)
[2022-11-08 16:17] LABS: VITAMIN B12 LEVEL 519 PG/ML (211-911)
[2022-11-08 16:19] LABS: ALBUMIN 3.6 G/DL (3.2-5.2); ALKALINE PHOSPHATASE 162 U/L (46-116); ALT/SGPT 31 U/L (7.0-40); AST/SGOT 16 U/L (<34); BILIRUBIN,DIRECT < 0.1 MG/DL (<0.4); BILIRUBIN,TOTAL 0.2 MG/DL (0.3-1.2); BLOOD UREA NITROGEN 30 MG/DL (9-23); CALCIUM LEVEL 9.7 MG/DL (8.5-10.1); CARBON DIOXIDE LEVEL 30 MMOL/L (20-31); CHLORIDE LEVEL 110 MMOL/L (98-107); CREATININE FOR GFR 0.58 MG/DL (0.55-1.30); GLOMERULAR FILTRATION RATE > 60.0 (>51); GLUCOSE, FASTING 84 MG/DL (60-100); SODIUM LEVEL 143 MMOL/L (136-145); TOTAL PROTEIN 6.8 G/DL (5.7-8.2)
== END ==
LOC: M LAB 15:17
PROVIDERS: ATTEND Internal Medicine Gastroenterology
DX: R10.13 Epigastric pain (principal)

== ENCOUNTER → 2023-09-09 | Outpatient (CLI) | payer MEDICARE, MEDICAID ==
[2023-09-09 12:31] LABS: BASO % 0.3 % (0.0-1.0); EOS # 0.2 10^3/uL (0.0-0.5); EOS % 1.3 % (0.0-3.0); HEMATOCRIT 42.5 % (36.0-47.0); HEMOGLOBIN 14.1 g/dl (12.0-15.5); LYMPH # 3.7 10^3/uL (1.5-5.0); LYMPH % 30.3 % (24.0-44.0); MEAN CORPUSCULAR HEMOGLOBIN 28.5 pg (27.0-33.0); MEAN CORPUSCULAR HGB CONC 33.2 g/dl (32.0-36.5); MONO # 0.9 10^3/uL (0.0-0.8); MONO % 7.5 % (2.0-8.0); NEUTROPHILS # 7.3 10^3/uL (1.5-8.5); NEUTROPHILS % 60.4 % (36.0-66.0); PLATELET COUNT, AUTOMATED 325 10^3/uL (150-450); RED BLOOD COUNT 4.94 10^6/uL (4.00-5.40); WHITE BLOOD COUNT 12.1 10^3/uL (4.0-10.0)
[2023-09-09 12:33] LABS: ALBUMIN 3.5 G/DL (3.2-5.2); ALKALINE PHOSPHATASE 173 U/L (46-116); ALT/SGPT 62 U/L (7.0-40); AST/SGOT 31 U/L (<34); BILIRUBIN,TOTAL 0.2 MG/DL (0.3-1.2); BLOOD UREA NITROGEN 17 MG/DL (9-23); CALCIUM LEVEL 9.8 MG/DL (8.5-10.1); CARBON DIOXIDE LEVEL 30 MMOL/L (20-31); CHLORIDE LEVEL 109 MMOL/L (98-107); CHOLESTEROL LEVEL 227 MG/DL (<200); CREATININE FOR GFR 0.64 MG/DL (0.55-1.30); GLOMERULAR FILTRATION RATE > 60.0 (>51); GLUCOSE, FASTING 81 MG/DL (60-100); HDL CHOLESTEROL 48.2 MG/DL (>40); LDL CHOLESTEROL 126.2 MG/DL (<100); NON-HDL-C 178.8 MG/DL; POTASSIUM SERUM 4.2 MMOL/L (3.5-5.1); SODIUM LEVEL 143 MMOL/L (136-145); TOTAL PROTEIN 6.7 G/DL (5.7-8.2); TRIGLYCERIDES LEVEL 263 MG/DL (<150)
[2023-09-09 12:34] LABS: FREE T4 0.88 NG/DL (0.89-1.76)
[2023-09-09 12:35] LABS: THYROID STIMULATING HORMONE 1.642 uIU/ML (0.55-4.78)
== END ==
LOC: M PLALAB 10:10
PROVIDERS: ATTEND Family Medicine
DX: Z13.220 Encounter for screening for lipoid disorders (principal); Z13.0 Encounter for screening for diseases of the blood and blood-forming organs and certain disorders involving the immune mechanism; Z13.29 Encounter for screening for other suspected endocrine disorder; Z79.899 Other long term (current) drug therapy

== ENCOUNTER → 2024-01-27 | Outpatient (CLI) | payer MEDICARE, MEDICAID ==
[2024-01-27 17:55] LABS: BASO % 0.3 % (0.0-1.0); EOS # 0.1 10^3/uL (0.0-0.5); EOS % 0.5 % (0.0-3.0); HEMATOCRIT 43.9 % (36.0-47.0); HEMOGLOBIN 14.3 g/dl (12.0-15.5); LYMPH # 3.1 10^3/uL (1.5-5.0); MEAN CORPUSCULAR HEMOGLOBIN 27.6 pg (27.0-33.0); MEAN CORPUSCULAR HGB CONC 32.6 g/dl (32.0-36.5); MEAN CORPUSCULAR VOLUME 84.6 fl (80.0-96.0); MONO # 0.9 10^3/uL (0.0-0.8); MONO % 7.7 % (2.0-8.0); NEUTROPHILS # 7.8 10^3/uL (1.5-8.5); NEUTROPHILS % 65.2 % (36.0-66.0); PLATELET COUNT, AUTOMATED 339 10^3/uL (150-450); RED BLOOD COUNT 5.19 10^6/uL (4.00-5.40)
[2024-01-27 18:04] LABS: ERYTHROCYTE SEDIMENTATION RATE 42 mm/hr (0-30)
[2024-01-27 18:27] LABS: ALBUMIN 3.6 G/DL (3.2-5.2); ALKALINE PHOSPHATASE 185 U/L (46-116); ALT/SGPT 42 U/L (7.0-40); AST/SGOT 16 U/L (<34); BILIRUBIN,TOTAL 0.2 MG/DL (0.3-1.2); BLOOD UREA NITROGEN 23 MG/DL (9-23); CALCIUM LEVEL 9.9 MG/DL (8.5-10.1); CARBON DIOXIDE LEVEL 24 MMOL/L (20-31); CHLORIDE LEVEL 110 MMOL/L (98-107); CREATININE FOR GFR 0.67 MG/DL (0.55-1.30); GLOMERULAR FILTRATION RATE > 60.0 (>51); GLUCOSE, FASTING 80 MG/DL (60-100); POTASSIUM SERUM 4.3 MMOL/L (3.5-5.1); SODIUM LEVEL 140 MMOL/L (136-145); TOTAL PROTEIN 6.8 G/DL (5.7-8.2)
== END ==
LOC: M LAB 16:42
PROVIDERS: ATTEND Internal Medicine Rheumatology
DX: M32.19 Other organ or system involvement in systemic lupus erythematosus (principal); Z79.899 Other long term (current) drug therapy; I73.00 Raynaud's syndrome without gangrene; E55.9 Vitamin D deficiency, unspecified

== ENCOUNTER → 2024-07-07 | Outpatient (CLI) | payer MEDICARE, MEDICAID ==
[2024-07-07 13:37] LABS: BASO % 0.4 % (0.0-1.0); EOS # 0.1 10^3/uL (0.0-0.5); EOS % 0.5 % (0.0-3.0); HEMATOCRIT 44.5 % (36.0-47.0); HEMOGLOBIN 14.6 g/dl (12.0-15.5); LYMPH # 2.8 10^3/uL (1.5-5.0); LYMPH % 27.6 % (24.0-44.0); MEAN CORPUSCULAR HGB CONC 32.8 g/dl (32.0-36.5); MEAN CORPUSCULAR VOLUME 85.2 fl (80.0-96.0); MONO # 0.6 10^3/uL (0.0-0.8); MONO % 5.8 % (2.0-8.0); NEUTROPHILS # 6.6 10^3/uL (1.5-8.5); NEUTROPHILS % 65.3 % (36.0-66.0); PLATELET COUNT, AUTOMATED 305 10^3/uL (150-450); RED BLOOD COUNT 5.22 10^6/uL (4.00-5.40); WHITE BLOOD COUNT 10.1 10^3/uL (4.0-10.0)
[2024-07-07 13:55] LABS: ALBUMIN 3.7 G/DL (3.2-5.2); ALKALINE PHOSPHATASE 164 U/L (35-104); ALT/SGPT 31 U/L (7.0-40); AST/SGOT 12 U/L (<34); BILIRUBIN,TOTAL 0.3 MG/DL (0.3-1.2); BLOOD UREA NITROGEN 21 MG/DL (9-23); CALCIUM LEVEL 9.6 MG/DL (8.5-10.1); CARBON DIOXIDE LEVEL 27 MMOL/L (20-31); CHLORIDE LEVEL 111 MMOL/L (98-107); CHOLESTEROL LEVEL 246 MG/DL (<200); CHOLESTEROL RISK RATIO 5.23 (<5); CREATININE FOR GFR 0.63 MG/DL (0.55-1.30); FREE T4 1.04 NG/DL (0.89-1.76); GLOMERULAR FILTRATION RATE > 60.0 (>51); GLUCOSE, FASTING 93 MG/DL (60-100); LDL CHOLESTEROL 158.2 MG/DL (<100); POTASSIUM SERUM 4.2 MMOL/L (3.5-5.1); SODIUM LEVEL 141 MMOL/L (136-145); THYROID STIMULATING HORMONE 0.645 uIU/ML (0.55-4.78); TOTAL PROTEIN 7.1 G/DL (5.7-8.2); TRIGLYCERIDES LEVEL 204 MG/DL (<150)
== END ==
LOC: M LAB 13:06
PROVIDERS: ATTEND Nurse Practitioner Adult Health
DX: M32.9 Systemic lupus erythematosus, unspecified (principal); Z13.220 Encounter for screening for lipoid disorders; Z13.29 Encounter for screening for other suspected endocrine disorder; Z79.82 Long term (current) use of aspirin; Z79.899 Other long term (current) drug therapy

== ENCOUNTER → 2024-11-16 | Outpatient (CLI) | payer MEDICARE, MEDICAID ==
[2024-11-16 15:55] LABS: ALBUMIN 3.6 G/DL (3.2-5.2); ALKALINE PHOSPHATASE 159 U/L (35-104); ALT/SGPT 40 U/L (7.0-40); AST/SGOT 20 U/L (<34); BILIRUBIN,DIRECT < 0.1 MG/DL (<0.4); BILIRUBIN,TOTAL 0.2 MG/DL (0.3-1.2); BLOOD UREA NITROGEN 23 MG/DL (9-23); CALCIUM LEVEL 9.9 MG/DL (8.5-10.1); CARBON DIOXIDE LEVEL 29 MMOL/L (20-31); CHLORIDE LEVEL 104 MMOL/L (98-107); CHOLESTEROL LEVEL 229 MG/DL (<200); CHOLESTEROL RISK RATIO 4.46 (<5); CREATININE FOR GFR 0.69 MG/DL (0.55-1.30); GLOMERULAR FILTRATION RATE > 60.0 (>51); GLUCOSE, FASTING 85 MG/DL (60-100); HDL CHOLESTEROL 51.3 MG/DL (>40); LDL CHOLESTEROL 105.1 MG/DL (<100); NON-HDL-C 177.7 MG/DL; POTASSIUM SERUM 4.3 MMOL/L (3.5-5.1); SODIUM LEVEL 142 MMOL/L (136-145); TOTAL PROTEIN 7.2 G/DL (5.7-8.2); TRIGLYCERIDES LEVEL 363 MG/DL (<150)
== END ==
LOC: M LAB 15:06
PROVIDERS: ATTEND Nurse Practitioner Adult Health
DX: E78.5 Hyperlipidemia, unspecified (principal)

== ENCOUNTER → 2025-03-03 | Outpatient (CLI) | payer MEDICARE, MEDICAID ==
[~2025-03-03] MED LIST changes: -FLOM0.4C39; -FLOM0.4C39 PO; +TAMS-18; +TAMS-18 PO
[2025-03-03 15:27] LABS: ALT/SGPT 33 U/L (7.0-40); AST/SGOT 22 U/L (<34)
== END ==
LOC: M LAB 14:14
PROVIDERS: ATTEND Nurse Practitioner Adult Health
DX: E78.5 Hyperlipidemia, unspecified (principal)